=== PATIENT | female | born 1990 | race American Indian/Alaskan Native ===

== ENCOUNTER 2016-10-18 18:05 | Emergency (ER) | payer MEDICAID ==
[2016-10-18 19:30] LABS: Basophils % (Auto) 0.6 % (0.0-1.8); Eosinophils % (Auto) 2.1 % (0.0-4.3); Hematocrit 36.3 % (30.3-42.9); Mean Corpuscular HGB Conc 33 % (30-34); Mean Corpuscular Hemoglobin 31 pg (28-32); Mean Corpuscular Volume 92 fl (79-97); Platelet Count 179 K/mm3 (140-440); Red Blood Count 3.93 M/mm3 (3.65-5.03); Red Cell Distribution Width 14.4 % (13.2-15.2); White Blood Count 6.8 K/mm3 (4.5-11.0)
[2016-10-18 19:42] LABS: Anion Gap 17 mmol/L; BUN/Creatinine Ratio 15.71; Blood Urea Nitrogen 11 mg/dL (7-17); Calcium 9.2 mg/dL (8.4-10.2); Carbon Dioxide 24 mmol/L (22-30); Chloride 101.8 mmol/L (98-107); Glucose 78 mg/dL (65-100); Potassium 4.4 mmol/L (3.6-5.0); Sodium 138 mmol/L (137-145)
[2016-10-18] MEDS ORDERED: MORPHINE IV ONE (22:49)
[2016-10-18] MEDS ORDERED: ZOFRAN IV ONE (22:49)
[2016-10-18] MEDS ORDERED: LIDOCAINE VISCOUS 2% PO ONE (22:53)
[2016-10-18] MEDS ORDERED: ALUM-MAG HYDROX-SIMETH 200-200-20MG/5ML PO ONE (22:53)
[2016-10-18] MEDS ORDERED: PEPCID IV ONE (22:53)
--- NOTE | 2016-10-18 22:59 | Emergency Department Report ---
HPI - General Chief Complaint: Chest Pain Time Seen by Provider: 10/18/16 22:42 - HPI HPI: Room 22 The patient is a 26-year-old female presenting with a chief complaint of chest pain. Patient states for the past 3-4 days she has a constant substernal chest pain described as stabbing and squeezing in nature. The patient states the pain increases with deep respiration and swallowing. Patient states the pain increased today. The patient states she originally thought pain was secondary to gas. Patient states she has noticed a slight increased amount of eructation but has not noticed any funny taste in the back of her mouth. Patient does admit to shortness of breath but denies nausea/vomiting or fever. Patient admits to an occasional nonproductive cough. Patient admits to occasional rhinorrhea. Patient denies any sick contacts. 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 hx of pna - Surgical History Past Surgical History?: Yes Additional Surgical History: PEG tube placement and removal, port - Family History Family history: no significant - Social History Smoking Status: Never Smoker Substance Use Type: None - Medications Home Medications: Home Medications Medication Instructions Recorded Confirmed Last Taken Type Ciprofloxacin HCl [Ciprofloxacin 500 mg PO Q12H #14 tab 06/09/16 Unknown Rx TAB] Magnesium Oxide [Mag-Ox] 400 mg PO QDAY #7 tablet 06/09/16 Unknown Rx Potassium Chloride [K-Dur] 10 meq PO QDAY #7 tablet 06/09/16 Unknown Rx guaiFENesin DM [Robitussin Dm] 10 ml PO Q4H PRN 7 Days 06/09/16 Unknown Rx Famotidine [Pepcid] 20 mg PO BID #30 tablet 10/19/16 Unknown Rx HYDROcodone/APAP 5-325 [[place] 1 - 2 each PO Q6HR PRN #14 tablet 10/19/16 Unknown Rx 5/325] ED Review of Systems ROS: Stated complaint: AHMET/CHEST PAIN Other details as noted in HPI Comment: All other systems reviewed and negative Constitutional: denies: chills, fever Eyes: denies: eye pain, eye discharge, vision change ENT: denies: ear pain, throat pain Respiratory: cough, shortness of breath Cardiovascular: chest pain Endocrine: no symptoms reported Gastrointestinal: other (slightly increased eructation). denies: abdominal pain , nausea, diarrhea Genitourinary: denies: urgency, dysuria, discharge Musculoskeletal: denies: back pain, joint swelling, arthralgia Skin: denies: rash, lesions Neurological: denies: headache, weakness, paresthesias Psychiatric: denies: anxiety, depression Hematological/Lymphatic: denies: easy bleeding, easy bruising Physical Exam - Physical Exam Vital Signs: Vital Signs 10/18/16 18:27 Temperature 98.4 F Pulse Rate 72 Respiratory 18 Rate Blood Pressure 112/72 O2 Sat by Pulse 100 Oximetry Physical Exam: GENERAL: The patient is well-developed well-nourished female lying on stretcher appearing to be in moderate discomfort. [] HEENT: Normocephalic. Atraumatic. Extraocular motions are intact. Patient has moist mucous membranes. NECK: Supple. Trachea midline CHEST/LUNGS: Clear to auscultation. There is no respiratory distress noted. HEART/CARDIOVASCULAR: Regular. There is no tachycardia. There is no gallop rub or murmur. ABDOMEN: Abdomen is soft, nontender. Patient has normal bowel sounds. There is no abdominal distention. SKIN: There is no rash. There is no edema. There is no diaphoresis. NEURO: The patient is awake, alert, and oriented. The patient is cooperative. The patient has normal speech MUSCULOSKELETAL: There is no evidence of acute injury. ED Course Vital Signs 10/18/16 18:27 Temperature 98.4 F Pulse Rate 72 Respiratory 18 Rate Blood Pressure 112/72 O2 Sat by Pulse 100 Oximetry - Reevaluation(s) Reevaluation #1: 10/19/16 00:26 Patient states she has had some improvement ED Medical Decision Making - Lab Data Result diagrams: 10/18/16 19:12 10/18/16 19:12 Laboratory Tests 10/18/16 10/18/16 10/18/16 19:12 19:12 23:07 WBC 6.8 RBC 3.93 Hgb 12.0 Hct 36.3 MCV 92 MCH 31 MCHC 33 RDW 14.4 Plt Count 179 Lymph % (Auto) 23.9 [place] % (Auto) 9.3 H Eos % (Auto) 2.1 Baso % (Auto) 0.6 Lymph # 1.6 [place] # 0.6 Eos # 0.1 Baso # 0.0 Seg Neutrophils % 64.1 Seg Neutrophils # 4.4 Sodium 138 Potassium 4.4 Chloride 101.8 Carbon Dioxide 24 Anion Gap 17 BUN 11 Creatinine 0.7 Estimated GFR > 60 BUN/Creatinine Ratio 15.71 Glucose 78 Calcium 9.2 Troponin T < 0.010 < 0.010 HCG, Qual 10/18/16 23:07 WBC RBC Hgb Hct MCV MCH MCHC RDW Plt Count Lymph % (Auto) [place] % (Auto) Eos % (Auto) Baso % (Auto) Lymph # [place] # Eos # Baso # Seg Neutrophils % Seg Neutrophils # Sodium Potassium Chloride Carbon Dioxide Anion Gap BUN Creatinine Estimated GFR BUN/Creatinine Ratio Glucose Calcium Troponin T HCG, Qual Negative - EKG Data -: EKG Interpreted by Mn EKG shows normal: sinus rhythm Rate: normal - EKG Data When compared to previous EKG there are: previous EKG unavailable Interpretation: other (no ischemic changes seen) - Radiology Data Radiology results: report reviewed (CT chest), image reviewed (CT chest) CT chest (read by radiologist)-the lungs are clear. No infiltrate or effusion. No pneumothorax. The pulmonary arterial structures a pacifier without thromboemboli. - Differential Diagnosis PE, GERD, esophageal spasm, pericarditis, ACS Critical care attestation.: If time is entered above; I have spent that time in minutes in the direct care of this critically ill patient, excluding procedure time. ED Disposition Clinical Impression: Atypical chest pain Disposition: DISCHARGED TO HOME OR SELFCARE Is pt being admited?: No Does the pt Need Aspirin: No Condition: Stable Instructions: Chest Pain (ED) Additional Instructions: Return to the emergency department immediately should you develop worsening symptoms, fever, inability to tolerate food or liquid or any other concerns. Prescriptions: Famotidine [Pepcid] 20 mg PO BID #30 tablet HYDROcodone/APAP 5-325 [[place] 5/325] 1 - 2 each PO Q6HR PRN #14 tablet PRN Reason: Pain Referrals: PRIMARY CARE, [Primary Care Provider] - 3-5 Days TATI FARRELL MD [Staff Physician] - 2-3 Days (Dr. Farrell is a purchaser. Please follow up with him for further evaluation) Time of Disposition: 00:30
[2016-10-18 23:09] VITALS: BP 120/72
[2016-10-18] MEDS ORDERED: NACL ONE (23:46)
--- NOTE | 2016-10-19 00:20 | Cat Scan Report ---
FINAL REPORT PROCEDURE: CT ANGIO CHEST TECHNIQUE: Computerized tomographic angiography of the chest was performed after the IV injection of iodinated nonionic contrast including image processing. The image data was postprocessed using 2-dimensional multiplanar reformatted (MPR) and 3-dimensional (MIP and/or volume rendered) techniques. HISTORY: pleuritic chest pain COMPARISON: 06/04/2016 FINDINGS: Heart and pericardium: Normal. Thoracic aorta: Normal. Pulmonary vasculature: Normal. Lymph nodes: No enlarged thoracic lymph nodes. Lungs: Normal. Pleural space: No effusion, thickening, or pneumothorax. Musculoskeletal structures: No significant abnormality. Upper abdominal structures: No significant abnormality. IMPRESSION: The lungs are clear. No infiltrate or effusion. No pneumothorax. The pulmonary arterial structures opacified without thromboemboli.
== END 2016-10-19 01:05 | disposition home or self-care (01) ==
LOC: ED 18:05
DX: R07.89 Other chest pain (principal); I26.99 Other pulmonary embolism without acute cor pulmonale
CPT/HCPCS: 36415; 71275; 80048; 84484; 84703; 85025; 93005; 93010; 96374; 96375; 99285; J2270; J2405; Q9967

== ENCOUNTER 2017-09-02 02:40 | Emergency (ER) | payer MEDICAID, OTHER ==
[2017-09-02 03:35] LABS: Basophils % (Auto) 0.8 % (0.0-1.8); Eosinophils % (Auto) 0.7 % (0.0-4.3); Hematocrit 37.3 % (30.3-42.9); Hemoglobin 12.8 gm/dl (10.1-14.3); Lymphocytes # (Auto) 1.1 K/mm3 (1.2-5.4); Lymphocytes % (Auto) 20.9 % (13.4-35.0); Mean Corpuscular HGB Conc 34 % (30-34); Mean Corpuscular Hemoglobin 32 pg (28-32); Mean Corpuscular Volume 94 fl (79-97); Monocytes # (Auto) 0.6 K/mm3 (0.0-0.8); Monocytes % (Auto) 11.8 % (0.0-7.3); Platelet Count 177 K/mm3 (140-440); Red Blood Count 3.98 M/mm3 (3.65-5.03)
--- NOTE | 2017-09-02 03:48 | XRay Report ---
FINAL REPORT PROCEDURE: XR CHEST ROUTINE 2V TECHNIQUE: PA and lateral chest radiographs were obtained. CPT 32533 HISTORY: Shortness of breath COMPARISON: No prior studies are available for comparison. FINDINGS: Heart: Normal. Mediastinum/Vessels: Normal. Lungs/Pleural space: Normal. Bony thorax: No acute osseous abnormality. Other: IMPRESSION: Normal examination.
[2017-09-02 03:53] LABS: BUN/Creatinine Ratio 20; Blood Urea Nitrogen 12 mg/dL (7-17); Calcium 9.5 mg/dL (8.4-10.2); Hemolysis Index 2
[2017-09-02] MEDS ORDERED: DUONEB *Not for PRN Use IH ONE (03:55)
[2017-09-02] MEDS ORDERED: TYLENOL PO ONE (04:39)
[2017-09-02] MEDS ORDERED: NACL 0.9% 1000 ML 1,000 ML IV ONE (04:40)
--- NOTE | 2017-09-02 05:33 | Ultrasound Report ---
FINAL REPORT PROCEDURE: US OB < = 14 WEEKS FETUS TECHNIQUE: Real-time transabdominal sonography of the uterus, placenta, amniotic fluid, adnexa, and fetus was performed with image documentation. Measurements were obtained to determine age/size. M-mode Doppler was used to document heartbeat. CPT 70020 HISTORY: COMPARISON: No prior studies are available for comparison. FINDINGS: There is a gestational sac within the uterus. Gestational sac size of 8 millimeters corresponds to an approximate gestational age of 5 weeks. No yolk sac or pole is seen on this study. Both ovaries are identified and have a normal appearance. No fluid in the lower pelvis. The findings are most consistent with early intrauterine . Followup study may include repeat ultrasound approximately 14 days. IMPRESSION: There is a gestational sac within the uterus. No pole or yolk sac is seen at this stage. The gestational age is approximately 5 weeks. Followup study with repeat ultrasound in approximately 2 weeks would be appropriate.
[2017-09-02 06:03] VITALS: BP 119/65
[2017-09-02] MEDS ORDERED: MORPHINE IV ONE (06:20)
--- NOTE | 2017-09-02 07:27 | Emergency Department Report ---
HPI - General Chief Complaint: Dyspnea/Respdistress Time Seen by Provider: 09/02/17 03:42 - HPI HPI: This is a 27-year-old female who presents to the emergency department via EMS from home with complaint of some shortness of breath and midsternal chest pain that started a few hours prior to presentation. She says that at first it felt like it started in the upper abdomen but then moved to the chest. The pain mostly worsens when coughing or with some respirations. She has a past medical history allegedly of some type of nasopharyngeal cancer. She also says that she has some remote history of a pulmonary embolism. She is not currently on any anticoagulation. She has been here a few times in the past for chest pain workups. She denies any tobacco or illicit drug use or abuse. She did not take anything for her symptoms prior to presentation. She has a primary care physician, Dr. Alyssa dangelo, but has not seen them regarding her symptoms. No recent travel or sick contacts at home. 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 hx of pna - Surgical History Additional Surgical History: PEG tube placement and removal, port - Social History Smoking Status: Never Smoker Substance Use Type: None - Medications Home Medications: Home Medications Medication Instructions Recorded Confirmed Last Taken Type Ciprofloxacin HCl [Ciprofloxacin 500 mg PO Q12H #14 tab 06/09/16 Unknown Rx TAB] Magnesium Oxide [Mag-Ox] 400 mg PO QDAY #7 tablet 06/09/16 Unknown Rx Potassium Chloride [K-Dur] 10 meq PO QDAY #7 tablet 06/09/16 Unknown Rx guaiFENesin DM [Robitussin Dm] 10 ml PO Q4H PRN 7 Days oral.liqd 06/09/16 Unknown Rx Famotidine [Pepcid] 20 mg PO BID #30 tablet 10/19/16 Unknown Rx HYDROcodone/APAP 5-325 [[place] 1 - 2 each PO Q6HR PRN #14 tablet 10/19/16 Unknown Rx 5/325] Vit No.130/Iron/Folic 1 each PO QDAY #30 tablet 09/02/17 Unknown Rx [ Tablet] ED Review of Systems ROS: Stated complaint: AHMET Other details as noted in HPI Comment: All other systems reviewed and negative Constitutional: denies: chills, fever Eyes: denies: eye pain, eye discharge, vision change ENT: denies: ear pain, throat pain Respiratory: cough, shortness of breath Cardiovascular: chest pain. denies: edema Gastrointestinal: abdominal pain. denies: vomiting Genitourinary: denies: urgency, dysuria, discharge Musculoskeletal: denies: back pain, joint swelling, arthralgia Skin: denies: rash, lesions Neurological: denies: headache, weakness, paresthesias Physical Exam - Physical Exam Vital Signs: Vital Signs 09/02/17 09/02/17 09/02/17 02:43 03:29 03:30 Temperature 98.3 F Pulse Rate 96 H 75 74 Respiratory 24 16 15 Rate Blood Pressure 99/57 Blood Pressure 99/57 [Right] O2 Sat by Pulse 100 100 Oximetry 09/02/17 09/02/17 09/02/17 03:45 04:00 04:15 Temperature Pulse Rate 70 88 94 H Respiratory 19 21 22 Rate Blood Pressure 115/70 111/70 111/70 Blood Pressure [Right] O2 Sat by Pulse 100 99 100 Oximetry 09/02/17 09/02/17 09/02/17 04:31 04:45 05:00 Temperature Pulse Rate 98 H 76 102 H Respiratory 16 14 20 Rate Blood Pressure 111/70 111/70 119/65 Blood Pressure [Right] O2 Sat by Pulse 100 100 100 Oximetry 09/02/17 09/02/17 09/02/17 05:15 05:21 05:31 Temperature Pulse Rate 83 Respiratory 18 18 Rate Blood Pressure 119/65 119/65 Blood Pressure [Right] O2 Sat by Pulse 100 100 Oximetry 09/02/17 09/02/17 09/02/17 05:45 06:05 06:37 Temperature Pulse Rate 93 H Respiratory 25 H 20 20 Rate Blood Pressure 119/65 Blood Pressure [Right] O2 Sat by Pulse 100 Oximetry Physical Exam: GENERAL: The patient is well-developed well-nourished. HENT: Normocephalic. Atraumatic. Patient has moist mucous membranes. EYES: Extraocular motions are intact. Pupils equal reactive to light bilaterally. NECK: Supple. Trachea is midline. CHEST/LUNGS: Clear to auscultation. Mild tachypnea but no accessory muscle use. There is no respiratory distress noted. HEART/CARDIOVASCULAR: Regular. There is mild tachycardia. There is no murmur. ABDOMEN: Abdomen is soft, nontender. Patient has normal bowel sounds. There is no abdominal distention. SKIN: Skin is warm and dry. NEURO: The patient is awake, alert, and oriented. The patient is cooperative. The patient has no focal neurologic deficits. The patient has normal speech. MUSCULOSKELETAL: There is no tenderness or deformity. There is no limitation range of motion. There is no evidence of acute injury. ED Course Vital Signs 09/02/17 09/02/17 09/02/17 02:43 03:29 03:30 Temperature 98.3 F Pulse Rate 96 H 75 74 Respiratory 24 16 15 Rate Blood Pressure 99/57 Blood Pressure 99/57 [Right] O2 Sat by Pulse 100 100 Oximetry 09/02/17 09/02/17 09/02/17 03:45 04:00 04:15 Temperature Pulse Rate 70 88 94 H Respiratory 19 21 22 Rate Blood Pressure 115/70 111/70 111/70 Blood Pressure [Right] O2 Sat by Pulse 100 99 100 Oximetry 09/02/17 09/02/17 09/02/17 04:31 04:45 05:00 Temperature Pulse Rate 98 H 76 102 H Respiratory 16 14 20 Rate Blood Pressure 111/70 111/70 119/65 Blood Pressure [Right] O2 Sat by Pulse 100 100 100 Oximetry 09/02/17 09/02/17 09/02/17 05:15 05:21 05:31 Temperature Pulse Rate 83 Respiratory 18 18 Rate Blood Pressure 119/65 119/65 Blood Pressure [Right] O2 Sat by Pulse 100 100 Oximetry 09/02/17 09/02/17 09/02/17 05:45 06:05 06:37 Temperature Pulse Rate 93 H Respiratory 25 H 20 20 Rate Blood Pressure 119/65 Blood Pressure [Right] O2 Sat by Pulse 100 Oximetry ED Medical Decision Making - Lab Data Result diagrams: 09/02/17 03:17 09/02/17 03:17 - EKG Data -: EKG Interpreted by Fl EKG shows normal: sinus rhythm, axis, intervals, QRS complexes, ST-T waves Rate: normal - EKG Data When compared to previous EKG there are: previous EKG unavailable Interpretation: normal EKG, unchanged when compared t (10/18/16) - Radiology Data Radiology results: report reviewed, image reviewed interpreted by me: Chest x-ray does not show any acute process. There are no pleural effusions, obvious pneumonia and there is no pneumothorax. EXAM: US ABDOMEN LIMITED HISTORY: upper abd pain TECHNIQUE: Routine sonographic imaging was obtained of the right upper quadrant. FINDINGS: The gallbladder is normal in size and wall thickness. There are 2 echogenic foci in the lumen which do not move. As to whether these are small polyps versus non shadowing air in stones is uncertain. The common bile duct is normal caliber 3.2 mm. The liver is normal size and echotexture. The pancreas is normal in size and echotexture. The right kidney is normal size contour and echotexture and measures 10.6 cm from pole level. Free fluid is not seen. IMPRESSION: Two small adherent stones versus polyps in the gallbladder. No acute process identified. Transcribed By: JAME Dictated By: NGOC VILLEDA MD Electronically Authenticated By: NGOC VILLEDA MD Signed Date/Time: 09/02/17 0321 PROCEDURE: US OB lt; = 14 WEEKS FETUS TECHNIQUE: Real-time transabdominal sonography of the uterus, placenta, amniotic fluid, adnexa, and fetus was performed with image documentation. Measurements were obtained to determine age/size. M-mode Doppler was used to document heartbeat. CPT 39376 HISTORY: COMPARISON: No prior studies are available for comparison. FINDINGS: There is a gestational sac within the uterus. Gestational sac size of 8 millimeters corresponds to an approximate gestational age of 5 weeks. No yolk sac or pole is seen on this study. Both ovaries are identified and have a normal appearance. No fluid in the lower pelvis. The findings are most consistent with early intrauterine . Followup study may include repeat ultrasound approximately 14 days. IMPRESSION: There is a gestational sac within the uterus. No pole or yolk sac is seen at this stage. The gestational age is approximately 5 weeks. Followup study with repeat ultrasound in approximately 2 weeks would be appropriate. Transcribed By: KYLAH Dictated By: CHLOE OLVERA MD Electronically Authenticated By: CHLOE OLVERA MD Signed Date/Time: 09/02/17 0129 - Medical Decision Making Patient presented with some chest pain, upper abdominal pain and shortness of breath. EKG is normal without ST elevation LA, ischemia or dysrhythmia. She had a chest x-ray that showed no signs of any pneumonia, pneumothorax, pleural effusions or any other acute process. Normal CBC, BMP and first troponin. Patient had a positive urine test. She says that her last menstrual cycle was in June and that she just started her cycle today with some mild vaginal bleeding. I sent a beta hCG quantitative came back at 2500. For this reason a transvaginal/OB ultrasound was done that came back showing a gestational sac without yolk sac or pole. This could be early . With the vaginal bleeding this could be threatened miscarriage. This was all discussed with the patient. At first I was hesitant to give the patient any pain medication more than Tylenol as she was found to be . The patient understands the risks of giving narcotic pain medication while but says that she does not care and accepts the risk and therefore the patient was given a dose of morphine for her chest pain. She was reevaluated and appears to be resting comfortably. Just prior to this, the patient was complaining of some upper abdominal pain so LFTs and lipase were added and a second troponin as well and the patient was sent for a upper abdominal ultrasound. It came back showing a possible gallstone versus gallbladder polyp. I am waiting on the results of the LFTs, lipase and troponin. If there are no significant abnormalities, and since the patient appears to be more comfortable , she will be discharged home. I plan to give a prescription for vitamins, a referral for [facility] services and a cardiology referral. The patient is low on the Heart score criteria. She has a DANIEL score of one of her pain is considered angina and 0 if not. She had a negative d-dimer and therefore is low suspicion for a pulmonary embolus. Critical Care Time: No Critical care attestation.: If time is entered above; I have spent that time in minutes in the direct care of this critically ill patient, excluding procedure time. ED Disposition Clinical Impression: Upper abdominal pain, Gallbladder polyp, Threatened miscarriage Chest pain Qualifiers: Chest pain type: unspecified Qualified Code(s): R07.9 - Chest pain, unspecified Qualifiers: Weeks of gestation: less than 8 weeks Qualified Code(s): Z3A.01 - Less than 8 weeks gestation of Disposition: - TO HOME OR SELFCARE Is pt being admited?: No Condition: Stable Instructions: Chest Pain (ED), (ED), Threatened Miscarriage (ED) Additional Instructions: Please follow up with an [facility] in the next few days. She will need a repeat hormone level to assess for early versus threatened miscarriage. You can take Tylenol every 4 hours, using weight-based dosing, as needed for discomfort. I have started you on vitamins. I have given him a referral for a local aircraft engine installer, Dr. Morrissey, in case she would like to follow up regarding her chest pain. I have given you multiple [facility] services/groups in the area. Return to the emergency Department with any worsening of her symptoms or any acute distress. Prescriptions: Vit No.130/Iron/Folic [ Tablet] 1 each PO QDAY #30 tablet Referrals: FARIHA MORRISSEY MD [Staff Physician] - 3-5 Days [facility] [Provider Group] - 3-5 Days [facility] [Provider Group] - 3-5 Days Time of Disposition: 07:38
[2017-09-02 08:28] LABS: Alanine Aminotransferase 8 units/L (7-56); Albumin 3.9 g/dL (3.9-5); Lipase 33 units/L (13-60)
[2017-09-02 08:37] LABS: Bilirubin,Direct < 0.2 mg/dL (0-0.2)
== END 2017-09-02 07:35 | disposition home or self-care (01) ==
LOC: ED 02:40
DX: O20.0 Threatened abortion (principal); Z3A.08 8 weeks gestation of pregnancy; R07.2 Precordial pain; R10.10 Upper abdominal pain, unspecified; K82.4 Cholesterolosis of gallbladder
CPT/HCPCS: 36415; 71046; 76705; 76801; 80048; 80074; 83690; 84484; 84702; 84703; 85025; 85379; 93005; 93010; 94640; 96361; 96374; 99285; J2270; J7030

== ENCOUNTER 2017-09-12 22:21 | Emergency (ER) | payer OTHER ==
[2017-09-12 22:40] VITALS: BP 97/65
[2017-09-12] MEDS ORDERED: ASPIRIN PO ONE (22:40)
[2017-09-12 22:57] LABS: Basophils % (Auto) 0.6 % (0.0-1.8); Eosinophils # (Auto) 0.1 K/mm3 (0.0-0.4); Eosinophils % (Auto) 2.1 % (0.0-4.3); Hematocrit 36.3 % (30.3-42.9); Hemoglobin 12.2 gm/dl (10.1-14.3); Lymphocytes # (Auto) 1.7 K/mm3 (1.2-5.4); Mean Corpuscular HGB Conc 34 % (30-34); Mean Corpuscular Hemoglobin 32 pg (28-32); Mean Corpuscular Volume 94 fl (79-97); Monocytes # (Auto) 0.4 K/mm3 (0.0-0.8); Monocytes % (Auto) 8.6 % (0.0-7.3); Platelet Count 173 K/mm3 (140-440); Red Blood Count 3.85 M/mm3 (3.65-5.03); Red Cell Distribution Width 12.8 % (13.2-15.2)
[2017-09-12 23:13] LABS: BUN/Creatinine Ratio 23; Blood Urea Nitrogen 14 mg/dL (7-17); Calcium 9.2 mg/dL (8.4-10.2); Hemolysis Index 1
--- NOTE | 2017-09-12 23:14 | XRay Report ---
FINAL REPORT PROCEDURE: XR CHEST ROUTINE 2V TECHNIQUE: PA and lateral chest radiographs were obtained. CPT 94959 HISTORY: SOB/RECENT MISCARRIAGE COMPARISON: 09/02/2017 FINDINGS: Heart: Normal. Mediastinum/Vessels: Normal. Lungs/Pleural space: Normal 4 millimeter calcific nodule is noted in the posterior lung as visualized on lateral view consistent with an old healed granuloma. There are no confluent infiltrates or mass lesions. Pleural spaces are clear.. Bony thorax: No acute osseous abnormality. Other: IMPRESSION: No acute pulmonary process.
== END 2017-09-13 00:02 | disposition left against medical advice (07) ==
LOC: ED 22:21
DX: R07.9 Chest pain, unspecified (principal); R10.2 Pelvic and perineal pain; Z53.1 Procedure and treatment not carried out because of patient's decision for reasons of belief and group pressure
CPT/HCPCS: 36415; 71046; 80048; 84484; 84702; 85025; 85379; 93005; 93010

== ENCOUNTER 2017-09-16 20:23 | Emergency (ER) | payer OTHER ==
--- NOTE | 2017-09-16 20:46 | Emergency Department Report ---
HPI - General Time Seen by Provider: 09/16/17 20:34 - HPI HPI: The patient is 27-year-old female with a history of chronic chest pain, who presents for evaluation recurrence of chest pain. The patient reports onset of new episode of chest pain at 7 PM, 2 hours prior to my evaluation, constant since onset, moderate in severity, burning and cramping in quality, exacerbated with coughing. She has been expressing a dry nonproductive cough for the past day. The patient denies fever, trauma to the chest, neck pain, parasthesias, dyspnea, cough, hemoptysis, palpitations, dizziness, syncope, unilateral leg swelling, calf muscle pain, cocaine or other stimulant use, recent immobilization, or history of cancer. 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 hx of pna - Surgical History Additional Surgical History: PEG tube placement and removal, port - Social History Smoking Status: Never Smoker Substance Use Type: Alcohol - Medications Home Medications: Home Medications Medication Instructions Recorded Confirmed Last Taken Type Ciprofloxacin HCl [Ciprofloxacin 500 mg PO Q12H #14 tab 06/09/16 Unknown Rx TAB] Magnesium Oxide [Mag-Ox] 400 mg PO QDAY #7 tablet 06/09/16 Unknown Rx Potassium Chloride [K-Dur] 10 meq PO QDAY #7 tablet 06/09/16 Unknown Rx guaiFENesin DM [Robitussin Dm] 10 ml PO Q4H PRN 7 Days oral.liqd 06/09/16 Unknown Rx Famotidine [Pepcid] 20 mg PO BID #30 tablet 10/19/16 Unknown Rx HYDROcodone/APAP 5-325 [[place] 1 - 2 each PO Q6HR PRN #14 tablet 10/19/16 Unknown Rx 5/325] Vit No.130/Iron/Folic 1 each PO QDAY #30 tablet 09/02/17 Unknown Rx [ Tablet] Omeprazole Magnesium [PriLOSEC Otc] 20 mg PO QDAY #14 tablet. 09/16/17 Unknown Rx traMADol [Ultram 50 MG tab] 50 mg PO Q6HR PRN #12 tablet 09/16/17 Unknown Rx ED Review of Systems ROS: Stated complaint: AHMET,CP Other details as noted in HPI Constitutional: denies: fever ENT: denies: throat or neck pain Respiratory: reports cough denies: shortness of breath Cardiovascular: reports: chest pain Endocrine: denies unexplained weight loss or gain Gastrointestinal: denies: abdominal pain, nausea Genitourinary: denies: dysuria Musculoskeletal: denies: leg swelling Skin: denies: rash Neurological: denies: headache Hematological/Lymphatic: denies: easy bleeding or easy bruising Psych: denies sadness or hopelessness Physical Exam - Physical Exam Physical Exam: General: well-nourished, well-developed, no acute distress Head: Normocephalic, atraumatic Eyes: normal sclera ENT: Mucous membranes are pink and moist Neck: trachea midline, neck supple, No neck stiffness, no cervical adenopathy Respiratory: Breath sounds equal bilaterally, no wheezing, rales, or rhonchi Cardio: S1 and S2 present, no murmurs, rubs, gallops, capillary refill is brisk Abdomen: Normoactive bowel sounds, soft abdomen, no rigidity, no guarding or rebound tenderness Chest WALL/Back: No tenderness to palpation of the chest wall, no CVA tenderness with percussion Musc: No pitting edema Skin: No rash Neuro: no facial drooping, normal speech Psych: Normal affect ED Medical Decision Making - Lab Data Result diagrams: 09/16/17 21:03 09/16/17 21:03 - Medical Decision Making The patient was seen and examined by myself. The patient is placed on a cardiac catheterization technician and continuous pulse ox. On initial evaluation, the patient was found to be in no distress. EKG was negative for findings suggestive of acute cardiac infarct. Labs and imaging are obtained. The patient was given pain medicine. Chest x-ray is negative for pneumothorax, focal consolidation, pulmonary vascular congestion, pleural effusion, or other obvious acute cardiopulmonary disease process. Lab results exhibited downtrending hCG level, consistent with likely miscarriage as hCG has decreased from 2500 2 weeks ago to 2.5 today, and otherwise labs were unremarkable including levels of troponin , WBC, hemoglobin, hematocrit, electrolytes, renal function. The patient was reevaluated and reported that their symptoms were markedly improved. As the patient has a DANIEL risk score less than 2, and a well's score less than 2, the patient is at low risk of ACS or pulmonary emboli etiology of their symptoms. The patient is stable for discharge with outpatient follow-up. The patient is given follow-up and return instructions. The patient expressed understanding and agreed with the plan. The patient is discharged in stable condition. Critical care attestation.: If time is entered above; I have spent that time in minutes in the direct care of this critically ill patient, excluding procedure time. ED Disposition Clinical Impression: Acute chest pain Disposition: DC-01 TO HOME OR SELFCARE Is pt being admited?: No Does the pt Need Aspirin: No Condition: Stable Instructions: Chest Pain (ED) Referrals: FARIHA JARRETT MD [Primary Care Provider] - 3-5 Days Time of Disposition: 20:46
[2017-09-16] MEDS ORDERED: SUBLIMAZE IV ONE (20:50)
[2017-09-16] MEDS ORDERED: ZOFRAN IV ONE (20:50)
[2017-09-16 21:12] LABS: Basophils % (Auto) 0.6 % (0.0-1.8); Eosinophils # (Auto) 0.1 K/mm3 (0.0-0.4); Eosinophils % (Auto) 1.6 % (0.0-4.3); Hematocrit 38.1 % (30.3-42.9); Hemoglobin 13.2 gm/dl (10.1-14.3); Lymphocytes # (Auto) 2.1 K/mm3 (1.2-5.4); Lymphocytes % (Auto) 35.5 % (13.4-35.0); Mean Corpuscular HGB Conc 35 % (30-34); Mean Corpuscular Hemoglobin 32 pg (28-32); Mean Corpuscular Volume 94 fl (79-97); Monocytes # (Auto) 0.6 K/mm3 (0.0-0.8); Monocytes % (Auto) 9.5 % (0.0-7.3); Platelet Count 186 K/mm3 (140-440); Red Blood Count 4.06 M/mm3 (3.65-5.03); Red Cell Distribution Width 12.7 % (13.2-15.2)
[2017-09-16 21:38] LABS: Alanine Aminotransferase 7 units/L (7-56); Albumin 4.3 g/dL (3.9-5); BUN/Creatinine Ratio 18; Blood Urea Nitrogen 11 mg/dL (7-17); Calcium 9.6 mg/dL (8.4-10.2); Hemolysis Index 13
[2017-09-16 22:41] VITALS: BP 94/54
[2017-09-16] MEDS ORDERED: TYLENOL PO ONE (23:12)
--- NOTE | 2017-09-16 23:16 | XRay Report ---
FINAL REPORT EXAM: XR CHEST 1V AP HISTORY: cp COMPARISON: September 12, 2017. FINDINGS: Frontal view(s) of the chest obtained. Cardiac silhouette within normal limits. No gross consolidation or effusion. No pneumothorax. IMPRESSION: No grossly acute findings.
== END 2017-09-16 23:51 | disposition home or self-care (01) ==
LOC: ED 20:23
DX: R07.9 Chest pain, unspecified (principal)
CPT/HCPCS: 36415; 71045; 80053; 83880; 84702; 85025; 93005; 93010; 96374; 96375; 99284; J2405; J3010

== ENCOUNTER 2017-10-16 02:46 | Emergency (ER) | payer OTHER ==
[2017-10-16] MEDS ORDERED: ASPIRIN PO ONE (03:18)
[2017-10-16 03:34] LABS: Basophils # (Auto) 0.1 K/mm3 (0.0-0.1); Basophils % (Auto) 0.9 % (0.0-1.8); Eosinophils # (Auto) 0.2 K/mm3 (0.0-0.4); Eosinophils % (Auto) 3.7 % (0.0-4.3); Hemoglobin 11.6 gm/dl (10.1-14.3); Lymphocytes # (Auto) 2.4 K/mm3 (1.2-5.4); Lymphocytes % (Auto) 43.5 % (13.4-35.0); Mean Corpuscular HGB Conc 34 % (30-34); Mean Corpuscular Hemoglobin 32 pg (28-32); Mean Corpuscular Volume 92 fl (79-97); Monocytes # (Auto) 0.7 K/mm3 (0.0-0.8); Monocytes % (Auto) 12.3 % (0.0-7.3); Platelet Count 203 K/mm3 (140-440); Red Blood Count 3.68 M/mm3 (3.65-5.03)
[2017-10-16 03:52] LABS: BUN/Creatinine Ratio 30; Blood Urea Nitrogen 15 mg/dL (7-17); Calcium 8.8 mg/dL (8.4-10.2); Hemolysis Index 4
--- NOTE | 2017-10-16 04:40 | XRay Report ---
FINAL REPORT EXAM: XR CHEST ROUTINE 2V HISTORY: chestpain and SOB TECHNIQUE: PA and lateral views of the chest were obtained and compared to the study 09/16/2017. FINDINGS: Heart size and mediastinum appear normal. Lungs are clear. Pleural fluid is not seen. The bones and soft tissues are unremarkable. IMPRESSION: Normal chest.
[2017-10-16] MEDS ORDERED: ZOFRAN IV ONE (10:52)
--- NOTE | 2017-10-16 10:59 | Emergency Department Report ---
HPI - General Chief Complaint: Dyspnea/Respdistress Time Seen by Provider: 10/16/17 10:45 - HPI HPI: Room 2 The patient is a 27-year-old female presenting with a chief complaint of chest pain. The patient states for the past 2-3 days she's had anterior chest pain described as pressure with associated shortness during exhalation. Patient states last night she became short of breath and noticed she was exhibiting "shallow breathing." The patient states she also noticed pain and swelling of both legs last night. Patient admits to slight diaphoresis with her chest pain but denies nausea/vomiting. Patient is to call for the past 2 days but states it is nonproductive. Patient denies any history of fever. Patient was diagnosed with PE approximately 6-8 months ago (not currently on anticoagulation /completed a 6 month course) and states her current chest pain feels somewhat different than her previous PE Location: Chest, legs Duration: [See above] Quality: [See above] Severity: [See above] Modifying factors: [see above] Context: [see above] Mode of transportation: [not driving] ED Past Medical Hx - Past Medical History Hx Pulmonary Embolism: Yes Additional medical history: Nasopharyngeal CA status post XRT and chemotherapy 2011also hx of pna, DVT - Surgical History Additional Surgical History: PEG tube placement and removal, port placement and removal - Family History Family history: no significant - Social History Smoking Status: Never Smoker Substance Use Type: None (denies illicit drug use) - Medications Home Medications: Home Medications Medication Instructions Recorded Confirmed Last Taken Type Ciprofloxacin HCl [Ciprofloxacin 500 mg PO Q12H #14 tab 06/09/16 Unknown Rx TAB] Magnesium Oxide [Mag-Ox] 400 mg PO QDAY #7 tablet 06/09/16 Unknown Rx Potassium Chloride [K-Dur] 10 meq PO QDAY #7 tablet 06/09/16 Unknown Rx guaiFENesin DM [Robitussin Dm] 10 ml PO Q4H PRN 7 Days oral.liqd 06/09/16 Unknown Rx Famotidine [Pepcid] 20 mg PO BID #30 tablet 10/19/16 Unknown Rx HYDROcodone/APAP 5-325 [[place] 1 - 2 each PO Q6HR PRN #14 tablet 10/19/16 Unknown Rx 5/325] Vit No.130/Iron/Folic 1 each PO QDAY #30 tablet 09/02/17 Unknown Rx [ Tablet] Omeprazole Magnesium [PriLOSEC Otc] 20 mg PO QDAY #14 tablet. 09/16/17 Unknown Rx traMADol [Ultram 50 MG tab] 50 mg PO Q6HR PRN #12 tablet 09/16/17 Unknown Rx ALBUTEROL Inhaler [Proair] 2 puff IH QID PRN #1 inhalation 10/16/17 Unknown Rx Ibuprofen [Motrin 800 MG tab] 800 mg PO Q8HR PRN #20 tablet 10/16/17 Unknown Rx traMADol [Ultram] 50 mg PO Q6HR PRN #10 tablet 10/16/17 Unknown Rx ED Review of Systems ROS: Stated complaint: CHEST PAIN,SOB Other details as noted in HPI Constitutional: diaphoresis. denies: fever Respiratory: cough, shortness of breath Cardiovascular: chest pain Gastrointestinal: denies: nausea, vomiting Hematological/Lymphatic: other (bilateral lower extremity pain and swelling) Physical Exam - Physical Exam Vital Signs: Vital Signs 10/16/17 03:08 Temperature 97.8 F Pulse Rate 81 Respiratory 18 Rate Blood Pressure 102/71 O2 Sat by Pulse 100 Oximetry Physical Exam: GENERAL: The patient is well-developed well-nourished female lying on stretcher appearing to be in mild discomfort. [] HEENT: Normocephalic. Atraumatic. Extraocular motions are intact. Patient has moist mucous membranes. NECK: Supple. Trachea midline CHEST/LUNGS: Clear to auscultation. There is no respiratory distress noted. HEART/CARDIOVASCULAR: Regular. There is no tachycardia. There is no gallop rub or murmur. ABDOMEN: Abdomen is soft, nontender. Patient has normal bowel sounds. There is no abdominal distention. SKIN: There is no rash. There is trace pedal edema bilaterally. There is no diaphoresis. NEURO: The patient is awake, alert, and oriented. The patient is cooperative. The patient has normal speech MUSCULOSKELETAL:There is no evidence of acute injury. ED Course Vital Signs 10/16/17 03:08 Temperature 97.8 F Pulse Rate 81 Respiratory 18 Rate Blood Pressure 102/71 O2 Sat by Pulse 100 Oximetry ED Medical Decision Making - Lab Data Result diagrams: 10/16/17 03:23 10/16/17 03:23 Laboratory Tests 04/02/18 04/02/18 04/02/18 03:23 03:23 03:23 WBC 5.6 RBC 3.68 Hgb 11.6 Hct 34.0 MCV 92 MCH 32 MCHC 34 RDW 13.0 L Plt Count 203 Lymph % (Auto) 43.5 H [place] % (Auto) 12.3 H Eos % (Auto) 3.7 Baso % (Auto) 0.9 Lymph # 2.4 [place] # 0.7 Eos # 0.2 Baso # 0.1 Seg Neutrophils % 39.6 L Seg Neutrophils # 2.2 Sodium 139 Potassium 3.6 Chloride 103.4 Carbon Dioxide 21 L Anion Gap 18 BUN 15 Creatinine 0.5 L Estimated GFR > 60 BUN/Creatinine Ratio 30 Glucose 88 Calcium 8.8 Troponin T < 0.010 NT-Pro-B Natriuret Pep HCG, Qual Negative 10/16/17 10/16/17 10/16/17 05:52 08:59 08:59 WBC RBC Hgb Hct MCV MCH MCHC RDW Plt Count Lymph % (Auto) [place] % (Auto) Eos % (Auto) Baso % (Auto) Lymph # [place] # Eos # Baso # Seg Neutrophils % Seg Neutrophils # Sodium Potassium Chloride Carbon Dioxide Anion Gap BUN Creatinine Estimated GFR BUN/Creatinine Ratio Glucose Calcium Troponin T < 0.010 < 0.010 NT-Pro-B Natriuret Pep 44.61 HCG, Qual - EKG Data -: EKG Interpreted by Me EKG shows normal: sinus rhythm Rate: normal - EKG Data When compared to previous EKG there are: no significant change Interpretation: unchanged when compared t (09/16/2017) - Radiology Data Radiology results: report reviewed (chest x-ray, CT chest, bilateral lower extremity Doppler), image reviewed (chest x-ray, CT chest, bilateral lower extremity Doppler) interpreted by me: Chest x-ray-no focal infiltrate, no pneumothorax. Circular density seen on PA and lateral which appears to be extracorporeal [facility] [address] [place] [address] Cat Scan Report Signed Patient: JEN BRAVO MR#: [id number] : 1990 Acct:[id number] Age/Sex: 27 / F ADM Date: 10/16/17 Loc: ED Attending Dr: Ordering Physician: ALEAJNDRO BISWAS MD Date of Service: 10/16/17 Procedure(s): CT angio chest Accession Number(s): [id number] cc: ALEJANDRO BISWAS MD CTA CHEST: HISTORY: Chest pain, shortness of breath. COMPARISON: 10/18/16. TECHNIQUE: Helical CT in 1.25mm intervals following IV contrast. Pulmonary embolus protocol. Sagittal and coronal reformatted images. Rotational MIP images. FINDINGS: Contrast bolus is satisfactory. No pulmonary embolus is identified. Thyroid gland: Normal. Tracheobronchial tree: Normal. Esophagus: Normal. Heart: Normal. Pericardium: Normal. Mediastinum: Normal. Lung [place]: normal. Pleural Spaces: Normal. Musculoskeletal: Normal. IMPRESSION: No evidence for pulmonary embolus. Unremarkable CT chest with contrast. Transcribed By: TTR Dictated By: JOSEFA DENG JR, MD Electronically Authenticated By: JOSEFA DENG JR, MD Signed Date/Time: 10/16/17 1235 DD/ 1234 TD/TT: 10/16/17 1235 SHELLYCHACHO SHERRY Female : 1990 MedRec# [id number] 10/16/17 12:58 - Radiology Dept. Note by SHANNON DSOUZA Acct Num: [id number] : 1990 Patient Age: 27 BLE VENOUS DUPLEX COMPLETED. VAS LAB PRELIMINARY REPORT; NO EVIDENCE OF DVT/SVT NOTED IN VESSELS/SEGMENTS EXAMINED, BLE. PHYSICIANS REPORT TO FOLLOW...(RSK) Initialized on 10/16/17 12:58 - END OF NOTE - Differential Diagnosis PE, ACS, pleurisy, pneumonia, pneumothorax Critical care attestation.: If time is entered above; I have spent that time in minutes in the direct care of this critically ill patient, excluding procedure time. ED Disposition Clinical Impression: Atypical chest pain Disposition: DC-01 TO HOME OR SELFCARE Is pt being admited?: No Does the pt Need Aspirin: No Condition: Stable Instructions: Chest Pain (ED) Additional Instructions: Return to the emergency department immediately should you develop worsening symptoms, fever, inability to tolerate food or liquid or any other concerns. Prescriptions: ALBUTEROL Inhaler [Proair] 2 puff IH QID PRN #1 inhalation PRN Reason: Shortness Of Breath Ibuprofen [Motrin 800 MG tab] 800 mg PO Q8HR PRN #20 tablet PRN Reason: Pain traMADol [Ultram] 50 mg PO Q6HR PRN #10 tablet PRN Reason: Pain Referrals: FARIHA JARRETT MD [Primary Care Provider] - 3-5 Days Time of Disposition: 13:13
[2017-10-16] MEDS ORDERED: SUBLIMAZE IV ONE (11:00)
[2017-10-16] MEDS ORDERED: NACL ONE (12:00)
--- NOTE | 2017-10-16 12:43 | Cat Scan Report ---
CTA CHEST: HISTORY: Chest pain, shortness of breath. COMPARISON: 10/18/16. TECHNIQUE: Helical CT in 1.25mm intervals following IV contrast. Pulmonary embolus protocol. Sagittal and coronal reformatted images. Rotational MIP images. FINDINGS: Contrast bolus is satisfactory. No pulmonary embolus is identified. Thyroid gland: Normal. Tracheobronchial tree: Normal. Esophagus: Normal. Heart: Normal. Pericardium: Normal. Mediastinum: Normal. Lung [place]: normal. Pleural Spaces: Normal. Musculoskeletal: Normal. IMPRESSION: No evidence for pulmonary embolus. Unremarkable CT chest with contrast.
[2017-10-16 13:59] VITALS: BP 104/50
== END 2017-10-16 14:02 | disposition home or self-care (01) ==
LOC: ED 02:46
DX: R07.89 Other chest pain (principal); R06.02 Shortness of breath; M79.604 Pain in right leg; M79.605 Pain in left leg; M79.89 Other specified soft tissue disorders; Z86.711 Personal history of pulmonary embolism
CPT/HCPCS: 36415; 71046; 71275; 80048; 83880; 84484; 84703; 85025; 93005; 93010; 93970; 96374; 96375; 99285; J2405; J3010; Q9967

== ENCOUNTER 2017-12-14 03:29 | Emergency (ER) | payer OTHER ==
[2017-12-14] MEDS ORDERED: ASPIRIN PO ONE (03:52)
[2017-12-14 04:25] LABS: Basophils % (Auto) 0.9 % (0.0-1.8); Eosinophils # (Auto) 0.1 K/mm3 (0.0-0.4); Eosinophils % (Auto) 2.5 % (0.0-4.3); Lymphocytes % (Auto) 35.7 % (13.4-35.0); Mean Corpuscular HGB Conc 34 % (30-34); Mean Corpuscular Hemoglobin 31 pg (28-32); Mean Corpuscular Volume 92 fl (79-97); Monocytes # (Auto) 0.6 K/mm3 (0.0-0.8); Monocytes % (Auto) 11.1 % (0.0-7.3); Red Blood Count 3.82 M/mm3 (3.65-5.03); Red Cell Distribution Width 13.8 % (13.2-15.2)
[2017-12-14 04:33] LABS: Platelet Count 207 K/mm3 (140-440)
[2017-12-14 04:54] LABS: BUN/Creatinine Ratio 22; Blood Urea Nitrogen 13 mg/dL (7-17); Hemolysis Index 4
[2017-12-14] MEDS ORDERED: ASPIRIN ONE (09:11)
[2017-12-14] MEDS ORDERED: NACL 0.9% 1000 ML 1,000 ML ONE (09:59)
[2017-12-14] MEDS ORDERED: SUBLIMAZE ONE (10:00)
[2017-12-14] MEDS ORDERED: NACL 0.9% 1000 ML 2,000 ML IV ONE (11:33)
[2017-12-14] MEDS ORDERED: SUBLIMAZE IV ONE (11:33)
--- NOTE | 2017-12-14 12:24 | XRay Report ---
ROUTINE CHEST, TWO VIEWS: HISTORY: Chest pain, dyspnea. The trachea, heart, mediastinal contour, lung yuan and bony thorax are unremarkable. IMPRESSION: Unremarkable chest x-ray.
--- NOTE | 2017-12-14 12:33 | Emergency Department Report ---
ED Chest Pain HPI - General Chief Complaint: Chest Pain Stated Complaint: CHEST /SOB Time Seen by Provider: 12/14/17 11:21 Source: patient, RN notes reviewed Mode of arrival: Ambulatory Limitations: No Limitations - History of Present Illness Initial Comments: Past medical history: Erosive esophagitis, pulmonary embolus, nasopharyngeal cancer status post chemoradiation This is a 27-year-old female. The patient is previously known to this provider. Presents to the ER with central chest pain that radiates to back and shortness of breath. Her pain is sharp and achy. It increases with palpation, inspiration, decreases with rest. Patient denies diaphoresis. She denies recent travel. She denies leg pain, leg swelling. Patient denies cocaine ingestion. Patient has been seen in this emergency room multiple times for chest pain, and has had multiple negative CAT scans of the chest. She indicates a recent miscarriage, and has had 2 miscarriages within the past year. MD Complaint: chest pain -: Gradual Onset: during rest Pain Location: substernal, left chest, right chest Pain Radiation: back Quality: tightness, aching, heaviness, sharp Consistency: intermittent Improves With: medication-other, rest Worsens With: exertion, inspiration Aspirin use within the Past 7 Days: (0) No - Related Data Home Medications Medication Instructions Recorded Confirmed Last Taken ALBUTEROL Inhaler [Proair] 2 puff IH Q6H PRN 12/14/17 12/14/17 Unknown Ibuprofen [Motrin] 600 mg PO Q6H PRN 12/14/17 12/14/17 Unknown Metoprolol [Lopressor] 12.5 mg PO BID 12/14/17 12/14/17 Unknown Previous Rx's Medication Instructions Recorded Last Taken Type Famotidine [Pepcid] 20 mg PO BID #60 tablet 12/14/17 Unknown Rx Allergies Allergy/AdvReac Type Severity Reaction Status Date / Time No Known Allergies Allergy Unverified 05/06/13 09:35 Heart Score - HEART Score History: Moderately suspicious EKG: Normal Age: < 45 Risk factors: No known risk factors Troponin: < normal limit HEART Score: 1 - Critical Actions Critical Actions: 0-3 pts:0.9-1.7%risk of adverse cardiac event.Candidate for discharge ED Review of Systems ROS: Stated complaint: CHEST /SOB Other details as noted in HPI Constitutional: malaise. denies: fever Eyes: denies: eye discharge ENT: denies: epistaxis Respiratory: denies: wheezing Cardiovascular: chest pain Gastrointestinal: denies: abdominal pain Genitourinary: denies: dysuria Musculoskeletal: back pain Skin: denies: lesions Neurological: weakness Psychiatric: anxiety ED Past Medical Hx - Past Medical History Previous Medical History?: Yes Hx Pulmonary Embolism: Yes Additional medical history: Nasopharyngeal CA status post XRT and chemotherapy 2011also hx of pna, DVT - Surgical History Past Surgical History?: Yes Additional Surgical History: PEG tube placement and removal, port placement and removal - Social History Smoking Status: Never Smoker Substance Use Type: None - Medications Home Medications: Home Medications Medication Instructions Recorded Confirmed Last Taken Type ALBUTEROL Inhaler [Proair] 2 puff IH Q6H PRN 12/14/17 12/14/17 Unknown History Famotidine [Pepcid] 20 mg PO BID #60 tablet 12/14/17 Unknown Rx Ibuprofen [Motrin] 600 mg PO Q6H PRN 12/14/17 12/14/17 Unknown History Metoprolol [Lopressor] 12.5 mg PO BID 12/14/17 12/14/17 Unknown History ED Physical Exam - General Limitations: No Limitations General appearance: alert, in distress - Head Head exam: Present: atraumatic, normocephalic - Eye Eye exam: Present: normal appearance, EOMI. Absent: nystagmus - ENT ENT exam: Present: normal exam, normal orophraynx, mucous membranes moist, normal external ear exam - Neck Neck exam: Present: normal inspection, full ROM - Respiratory Respiratory exam: Present: normal lung sounds bilaterally, chest wall tenderness. Absent: respiratory distress - Cardiovascular Cardiovascular Exam: Present: regular rate, normal rhythm, normal heart sounds. Absent: systolic murmur, diastolic murmur, rubs, gallop - GI/Abdominal GI/Abdominal exam: Present: soft, normal bowel sounds. Absent: distended, tenderness, guarding, rebound, rigid, pulsatile mass - Extremities Exam Extremities exam: Present: normal inspection, full ROM, normal capillary refill , other (there is no palpable cord. There is negative Homans sign.). Absent: tenderness, pedal edema, joint swelling, calf tenderness - Back Exam Back exam: Present: normal inspection, full ROM. Absent: tenderness, CVA tenderness (R), paraspinal tenderness, vertebral tenderness - Neurological Exam Neurological exam: Present: alert, oriented X3, CN II-XII intact, normal gait, other (Extraocular movements intact. Tongue midline. No facial droop. Facial sensation intact to light touch in the V1, V2, V3 distribution bilaterally. 5 and 5 strength in 4 extremities.. Sensation is intact to light touch in 4 extremities.). Absent: motor sensory deficit - Psychiatric Psychiatric exam: Present: normal affect, normal mood - Skin Skin exam: Present: warm, dry, intact, normal color. Absent: rash ED Course Vital Signs 12/14/17 12/14/17 12/14/17 03:46 07:14 07:15 Temperature 98.5 F Pulse Rate 85 Respiratory 18 Rate Blood Pressure 105/67 92/45 92/45 Blood Pressure [Left] O2 Sat by Pulse 100 100 Oximetry 12/14/17 12/14/17 12/14/17 07:30 07:45 08:00 Temperature Pulse Rate 68 68 67 Respiratory 9 L 13 9 L Rate Blood Pressure 89/44 99/55 106/65 Blood Pressure [Left] O2 Sat by Pulse 100 100 100 Oximetry 12/14/17 12/14/17 08:15 14:49 Temperature Pulse Rate 69 62 Respiratory 14 18 Rate Blood Pressure 98/59 Blood Pressure 100/58 [Left] O2 Sat by Pulse 100 100 Oximetry DANIEL score - Daniel Score Age > 65: (0) No Aspirin use within the Past 7 Days: (0) No 3 or more CAD Risk Factors: (0) No 2 or more Angina events in past 24 hrs: (0) No Known CAD with more than 50% Stenosis: (0) No Elevated Cardiac Markers: (0) No ST Deviation Greater than 0.5mm: (0) No DANIEL Score: 0 ED Medical Decision Making - Lab Data Result diagrams: 12/14/17 03:56 12/14/17 03:56 Vital Signs 12/14/17 12/14/17 12/14/17 03:46 07:14 07:15 Temperature 98.5 F Pulse Rate 85 Respiratory 18 Rate Blood Pressure 105/67 92/45 92/45 Blood Pressure [Left] O2 Sat by Pulse 100 100 Oximetry 12/14/17 12/14/17 12/14/17 07:30 07:45 08:00 Temperature Pulse Rate 68 68 67 Respiratory 9 L 13 9 L Rate Blood Pressure 89/44 99/55 106/65 Blood Pressure [Left] O2 Sat by Pulse 100 100 100 Oximetry 12/14/17 12/14/17 08:15 14:49 Temperature Pulse Rate 69 62 Respiratory 14 18 Rate Blood Pressure 98/59 Blood Pressure 100/58 [Left] O2 Sat by Pulse 100 100 Oximetry Lab Results 12/14/17 12/14/17 12/14/17 Range/Units 03:56 03:56 03:56 WBC 5.6 (4.5-11.0) K/mm3 RBC 3.82 (3.65-5.03) M/mm3 Hgb 12.0 (10.1-14.3) gm/dl Hct 35.0 (30.3-42.9) % MCV 92 (79-97) fl MCH 31 (28-32) pg MCHC 34 (30-34) % RDW 13.8 (13.2-15.2) % Plt Count 207 (140-440) K/mm3 Lymph % (Auto) 35.7 H (13.4-35.0) % [place] % (Auto) 11.1 H (0.0-7.3) % Eos % (Auto) 2.5 (0.0-4.3) % Baso % (Auto) 0.9 (0.0-1.8) % Lymph # 2.0 (1.2-5.4) K/mm3 [place] # 0.6 (0.0-0.8) K/mm3 Eos # 0.1 (0.0-0.4) K/mm3 Baso # 0.0 (0.0-0.1) K/mm3 Seg Neutrophils % 49.8 (40.0-70.0) % Seg Neutrophils # 2.8 (1.8-7.7) K/mm3 D-Dimer (0-234) ng/mlDDU Sodium 138 (137-145) mmol/L Potassium 3.6 (3.6-5.0) mmol/L Chloride 105.4 (98-107) mmol/L Carbon Dioxide 20 L (22-30) mmol/L Anion Gap 16 mmol/L BUN 13 (7-17) mg/dL Creatinine 0.6 L (0.7-1.2) mg/dL Estimated GFR > 60 ml/min BUN/Creatinine Ratio 22 % Glucose 90 (65-100) mg/dL Calcium 9.0 (8.4-10.2) mg/dL Troponin T < 0.010 (0.00-0.029) ng/mL HCG, Qual Positive (Negative) Urine Color (Yellow) Urine Turbidity (Clear) Urine pH (5.0-7.0) Ur Specific [place] (1.003-1.030) Urine Protein (Negative) mg/dL Urine Glucose (UA) (Negative) mg/dL Urine Ketones (Negative) mg/dL Urine Blood (Negative) Urine Nitrite (Negative) Urine Bilirubin (Negative) Urine Urobilinogen (<2.0) mg/dL Ur Leukocyte Esterase (Negative) Urine WBC (Auto) (0.0-6.0) /HPF Urine RBC (Auto) (0.0-6.0) /HPF U Epithel Cells (Auto) (0-13.0) /HPF Urine Bacteria (Auto) (Negative) /HPF Urine Mucus /HPF 12/14/17 12/14/17 12/14/17 Range/Units 06:52 10:34 13:10 WBC (4.5-11.0) K/mm3 RBC (3.65-5.03) M/mm3 Hgb (10.1-14.3) gm/dl Hct (30.3-42.9) % MCV (79-97) fl MCH (28-32) pg MCHC (30-34) % RDW (13.2-15.2) % Plt Count (140-440) K/mm3 Lymph % (Auto) (13.4-35.0) % [place] % (Auto) (0.0-7.3) % Eos % (Auto) (0.0-4.3) % Baso % (Auto) (0.0-1.8) % Lymph # (1.2-5.4) K/mm3 [place]ier # (0.0-0.8) K/mm3 Eos # (0.0-0.4) K/mm3 Baso # (0.0-0.1) K/mm3 Seg Neutrophils % (40.0-70.0) % Seg Neutrophils # (1.8-7.7) K/mm3 D-Dimer 204.83 (0-234) ng/mlDDU Sodium (137-145) mmol/L Potassium (3.6-5.0) mmol/L Chloride (98-107) mmol/L Carbon Dioxide (22-30) mmol/L Anion Gap mmol/L BUN (7-17) mg/dL Creatinine (0.7-1.2) mg/dL Estimated GFR ml/min BUN/Creatinine Ratio % Glucose (65-100) mg/dL Calcium (8.4-10.2) mg/dL Troponin T < 0.010 < 0.010 (0.00-0.029) ng/mL HCG, Qual (Negative) Urine Color (Yellow) Urine Turbidity (Clear) Urine pH (5.0-7.0) Ur Specific [place] (1.003-1.030) Urine Protein (Negative) mg/dL Urine Glucose (UA) (Negative) mg/dL Urine Ketones (Negative) mg/dL Urine Blood (Negative) Urine Nitrite (Negative) Urine Bilirubin (Negative) Urine Urobilinogen (<2.0) mg/dL Ur Leukocyte Esterase (Negative) Urine WBC (Auto) (0.0-6.0) /HPF Urine RBC (Auto) (0.0-6.0) /HPF U Epithel Cells (Auto) (0-13.0) /HPF Urine Bacteria (Auto) (Negative) /HPF Urine Mucus /HPF 12/14/17 Range/Units Unknown WBC (4.5-11.0) K/mm3 RBC (3.65-5.03) M/mm3 Hgb (10.1-14.3) gm/dl Hct (30.3-42.9) % MCV (79-97) fl MCH (28-32) pg MCHC (30-34) % RDW (13.2-15.2) % Plt Count (140-440) K/mm3 Lymph % (Auto) (13.4-35.0) % [place] % (Auto) (0.0-7.3) % Eos % (Auto) (0.0-4.3) % Baso % (Auto) (0.0-1.8) % Lymph # (1.2-5.4) K/mm3 [place] # (0.0-0.8) K/mm3 Eos # (0.0-0.4) K/mm3 Baso # (0.0-0.1) K/mm3 Seg Neutrophils % (40.0-70.0) % Seg Neutrophils # (1.8-7.7) K/mm3 D-Dimer (0-234) ng/mlDDU Sodium (137-145) mmol/L Potassium (3.6-5.0) mmol/L Chloride (98-107) mmol/L Carbon Dioxide (22-30) mmol/L Anion Gap mmol/L BUN (7-17) mg/dL Creatinine (0.7-1.2) mg/dL Estimated GFR ml/min BUN/Creatinine Ratio % Glucose (65-100) mg/dL Calcium (8.4-10.2) mg/dL Troponin T (0.00-0.029) ng/mL HCG, Qual (Negative) Urine Color Straw (Yellow) Urine Turbidity Clear (Clear) Urine pH 8.0 H (5.0-7.0) Ur Specific [place] 1.036 H (1.003-1.030) Urine Protein <15 mg/dl (Negative) mg/dL Urine Glucose (UA) Neg (Negative) mg/dL Urine Ketones Neg (Negative) mg/dL Urine Blood Sm (Negative) Urine Nitrite Neg (Negative) Urine Bilirubin Neg (Negative) Urine Urobilinogen < 2.0 (<2.0) mg/dL Ur Leukocyte Esterase Tr (Negative) Urine WBC (Auto) 1.0 (0.0-6.0) /HPF Urine RBC (Auto) 1.0 (0.0-6.0) /HPF U Epithel Cells (Auto) 3.0 (0-13.0) /HPF Urine Bacteria (Auto) 1+ (Negative) /HPF Urine Mucus Few /HPF - EKG Data -: EKG Interpreted by Hi EKG shows normal: sinus rhythm, axis, intervals, QRS complexes, ST-T waves - EKG Data 12/14/17 15:33 Normal sinus, 83 bpm, normal axis, normal intervals, not a STEMI. Repeat EKG is unchanged. - Radiology Data Radiology results: report reviewed, image reviewed CT scan of the chest, interpreted by radiology, negative for acute disease. - Medical Decision Making Differential diagnosis, including but not limited to: Costochondritis, erosive esophagitis, pneumonia, acute coronary syndrome, hiatal hernia, pericarditis, myocarditis, pulmonary embolus Assessment and plan: 27-year-old female, reporting 2 miscarriages this year, also indicates incidental change in facial coloration, has facial discoloration that appears to be consistent with a butterfly rash, possible lupus. Endorses pleuritic chest pain and shortness of breath, did not feel that patient was low pretest probability, therefore d-dimer not applicable, therefore obtain CT scan of the chest. CT scan of the chest was negative. EKG unchanged 2. AMA panel is pending. Troponin negative 3. Given negative troponin, lack of fever, lack of tachycardia, myocarditis is unlikely. Equal pulses in the upper and lower extremities, aortic disease is unlikely. Low risk by DANIEL score, low risk by heart score, patient can follow up with outpatient cardiology for her chest pain, although given an endoscopy performed in 2016, it is most likely a component of erosive esophagitis. She will also need to follow up with outpatient gastroenterology. Critical care attestation.: If time is entered above; I have spent that time in minutes in the direct care of this critically ill patient, excluding procedure time. ED Disposition Clinical Impression: Chest pressure Disposition: DC-01 TO HOME OR SELFCARE Is pt being admited?: No Does the pt Need Aspirin: No Condition: Good Instructions: Gastroesophageal Reflux Disease (ED) Additional Instructions: Avoid consumption of Motrin, ibuprofen, Naprosyn, Goody powders. Avoid consumption of heavy, spicy foods. Follow up with any of the listed cardiology groups within the next 3-5 days. Follow up with the gastroenterology group within the next month. Laboratory studies were sent today to screen for lupus. They will result within the next 3 -5 days. Have a primary care doctor contact the medical records department to obtain these results. Return to the ER right away with new pain, worse pain, migration of pain, fevers, chills, lethargy, irritability, projectile vomiting, change in mental status, confusion, inability to tolerate liquid feeds. Referrals: PRIMARY CARE, [Primary Care Provider] - 3-5 Days [facility] [Provider Group] - 3-5 Days [facility] [Provider Group] - 3-5 Days [facility] [Provider Group] - 3-5 Days
--- NOTE | 2017-12-14 14:17 | Cat Scan Report ---
CTA CHEST: HISTORY: chest pain. COMPARISON: 10/16/17. TECHNIQUE: Helical CT in 1.25mm intervals following IV contrast. Pulmonary embolus protocol. Sagittal and coronal reformatted images. Rotational MIP images. FINDINGS: Contrast bolus is satisfactory. No pulmonary embolus is identified. Thyroid gland: Normal. Tracheobronchial tree: Normal. Esophagus: Normal. Heart: Normal. Pericardium: Normal. Mediastinum: Normal. Lung [place]: normal. Pleural Spaces: Normal. Musculoskeletal: Normal. IMPRESSION: No evidence for pulmonary embolus. Unremarkable CT chest with contrast. No change since 10/16/17 exam.
[2017-12-14 14:51] VITALS: BP 100/58
[2017-12-14 15:31] LABS: Bacteria,Urine 1+ /HPF (Negative); Bilirubin,Urine NEG (Negative); Blood,Urine SM (Negative); Color,Urine Straw (Yellow); Mucus,Urine FEW /HPF; Protein,Urine <15 mg/dL mg/dL (Negative); Urobilinogen,Urine < 2.0 mg/dL (<2.0)
[2017-12-14] MEDS ORDERED: ALUM-MAG HYDROX-SIMETH 200-200-20MG/5ML PO ONE (15:32)
[2017-12-14] MEDS ORDERED: CARAFATE PO ONE (15:32)
[2017-12-14] MEDS ORDERED: PEPCID PO ONE (15:32)
[2017-12-18 22:06] LABS: ANA Screen, IFA Positive (Negative)
== END 2017-12-14 16:00 | disposition home or self-care (01) ==
LOC: ED 03:29
DX: R07.89 Other chest pain (principal); Z86.711 Personal history of pulmonary embolism
CPT/HCPCS: 36415; 71046; 71275; 80048; 81001; 84484; 84703; 85025; 85379; 86038; 93005; 93010; 96365; 96375; 99285; J3010; J7030; Q9967

== ENCOUNTER 2018-10-15 03:03 | Emergency (ER) | payer OTHER ==
[2018-10-15 03:21] VITALS: BP 136/86
--- NOTE | 2018-10-15 03:49 | XRay Report ---
PROCEDURE: XR CHEST ROUTINE 2V TECHNIQUE: PA and lateral views of the chest were obtained. HISTORY: chestpain COMPARISONS: 12/31/2017 FINDINGS: The heart size and mediastinum appear normal. The lungs are clear. Pleural fluid is not seen. The bon es and soft tissues are well-maintained. IMPRESSION: No acute cardiopulmonary process.. This document is electronically signed by Conrad Paul MD., October 15 2018 03:47:04 AM ET
== END 2018-10-15 07:32 | disposition left against medical advice (07) ==
LOC: ED 03:03
DX: R07.89 Other chest pain (principal); Z53.21 Procedure and treatment not carried out due to patient leaving prior to being seen by health care provider
CPT/HCPCS: 71046; 93005; 93010

== ENCOUNTER 2018-12-12 03:22 | Emergency (ER) | payer OTHER ==
[2018-12-12 03:52] LABS: Basophils % (Auto) 0.3 % (0.0-1.8); Eosinophils # (Auto) 0.1 K/mm3 (0.0-0.4); Eosinophils % (Auto) 0.8 % (0.0-4.3); Hematocrit 32.9 % (30.3-42.9); Hemoglobin 10.9 gm/dl (10.1-14.3); Lymphocytes % (Auto) 9.5 % (13.4-35.0); Mean Corpuscular HGB Conc 33 % (30-34); Mean Corpuscular Volume 84 fl (79-97); Monocytes # (Auto) 0.7 K/mm3 (0.0-0.8); Monocytes % (Auto) 6.9 % (0.0-7.3); Platelet Count 207 K/mm3 (140-440); Red Blood Count 3.92 M/mm3 (3.65-5.03); Red Cell Distribution Width 15.8 % (13.2-15.2)
--- NOTE | 2018-12-12 06:43 | Ultrasound Report ---
PROCEDURE: US OB <= 14 WEEKS FETUS TECHNIQUE: Transabdominal imaging was obtained of the pelvis. HISTORY: vag bleeding COMPARISONS: None FINDINGS: The uterus is anteverted measuring 11.1 x 10.8 x 7.3 cm. The endometrium is thickened measuring 18.1 mm and has a heterogeneous echotexture. An IUP is not identified. There are 2 small cystic structures in expected position of the vagina. Free fluid is not seen. The left ovary is normal in size contour and echotexture measuring 3.1 x 1.6 x 1.7 cm. The right ovary measures 3.1 x 2.4 x 2.2 cm. Within the right ovary is an anechoic cyst measuring 2.1 cm in diameter. IMPRESSION: No evidence of an intact IUP. Indeterminate cystic structures in the vagina along with heterogeneous thickened endometrium which ma y represent retained products of conception and clot. 2.1 cm benign cysts in the right ovary. No evidence of free fluid or adnexal mass. This document is electronically signed by Conrad Paul MD., Dec 12 2018 06:41:03 AM ET
[2018-12-12] MEDS ORDERED: NACL 0.9% 1000 ML 1,000 ML IV ONE ×2 (08:10→11:17)
[2018-12-12] MEDS ORDERED: ZOFRAN IV ONE (08:17)
[2018-12-12] MEDS ORDERED: SUBLIMAZE IV ONE (08:17)
--- NOTE | 2018-12-12 08:23 | Emergency Department Report ---
HPI - General Chief Complaint: Vaginal Bleeding Time Seen by Provider: 12/12/18 08:09 - HPI HPI: Room 26 The patient is a 28-year-old female presenting with a chief complaint of vaginal bleeding. The patient states yesterday she developed heavy vaginal bleeding passing blood clots. Patient says she went through 3 maxipads last night. Patient states she also developed lower abdominal pain and back pain described as a pressure. Of note the patient was seen at [facility] ED 12/10/2018 and diagnosed with a threatened . The patient states they saw "an empty sac" in the uterus on ultrasound Location: Pelvis Duration: [See above] Quality: Pressure Severity: Moderate Modifying factors: [see above] Context: [see above] Mode of transportation: [not driving] ED Past Medical Hx - Past Medical History Previous Medical History?: Yes Hx Deep Vein Thrombosis: Yes Hx Pulmonary Embolism: Yes Additional medical history: SVT, Nasopharyngeal CA status post XRT and chem otherapy 2011also hx of pna, DVT. This record states history of esophageal carcinoma and pulmonary embolism. Patient states that she has not followed up since Dr. ALEXX Mccormick moved [facility]. - Surgical History Past Surgical History?: Yes Additional Surgical History: PEG tube placement and removal, port placement and removal - Family History Family history: no significant - Social History Smoking Status: Never Smoker Substance Use Type: None - Medications Home Medications: Home Medications Medication Instructions Recorded Confirmed Last Taken Type Levothyroxine [Synthroid] 50 mcg PO DAILY@0600 #30 tablet 01/02/18 Unknown Rx Metoprolol [Lopressor TAB] 12.5 mg PO 01/02/18 Unknown History HYDROcodone/APAP 5-325 [Berwick 1 each PO Q6HR PRN #10 tablet 06/14/18 Unknown Rx 5/325] Penicillin V Potassium 500 mg PO QID #40 tablet 06/14/18 Unknown Rx HYDROcodone/APAP 5-325 [Berwick 1 - 2 each PO Q6HR PRN #14 tablet 12/12/18 Unknown Rx 5/325] Ibuprofen [Motrin 800 MG tab] 800 mg PO Q8HR PRN #20 tablet 12/12/18 Unknown Rx Methylergonovine [Methergine] 0.2 mg PO Q8HR #6 tablet 12/12/18 Unknown Rx ED Review of Systems ROS: Stated complaint: VAG BLEEDING/POSS MISCARRIAGE Other details as noted in HPI Constitutional: no symptoms reported Eyes: denies: eye pain ENT: denies: throat pain Respiratory: no symptoms reported Cardiovascular: denies: chest pain Endocrine: no symptoms reported Gastrointestinal: abdominal pain Genitourinary: abnormal menses Neurological: denies: headache Physical Exam - Physical Exam Vital Signs: Vital Signs 12/12/18 12/12/18 12/12/18 03:30 03:34 07:37 Temperature 98 F 98.0 F 98.4 F Pulse Rate 98 H 110 H 74 Respiratory 18 18 16 Rate Blood Pressure 124/60 124/60 Blood Pressure 96/50 [Left] O2 Sat by Pulse 98 99 100 Oximetry 12/12/18 07:38 Temperature Pulse Rate Respiratory 16 Rate Blood Pressure Blood Pressure [Left] O2 Sat by Pulse 100 Oximetry Vital Signs 12/12/18 12/12/18 12/12/18 03:30 03:34 07:37 Temperature 98 F 98.0 F 98.4 F Pulse Rate 98 H 110 H 74 Respiratory 18 18 16 Rate Blood Pressure 124/60 124/60 Blood Pressure 96/50 [Left] O2 Sat by Pulse 98 99 100 Oximetry 12/12/18 12/12/18 12/12/18 07:38 11:11 12:53 Temperature 98.7 F Pulse Rate 70 75 Respiratory 16 16 Rate Blood Pressure Blood Pressure 93/56 104/63 [Left] O2 Sat by Pulse 100 100 Oximetry Physical Exam: GENERAL: The patient is well-developed well-nourished female lying on stretcher not appearing to be in acute distress. [] HEENT: Normocephalic. Atraumatic. Extraocular motions are intact. Patient has moist mucous membranes. NECK: Supple. Trachea midline CHEST/LUNGS: Clear to auscultation. There is no respiratory distress noted. HEART/CARDIOVASCULAR: Regular. There is no tachycardia. There is no gallop rub or murmur. ABDOMEN: Abdomen is soft, mild discomfort to palpation in the suprapubic and left lower. Patient has normal bowel sounds. There is no abdominal distention. SKIN: There is no rash. There is no edema. There is no diaphoresis. NEURO: The patient is awake, alert, and oriented. The patient is cooperative. The patient has normal speech MUSCULOSKELETAL: There is no evidence of acute injury. ED Course Vital Signs 12/12/18 12/12/18 12/12/18 03:30 03:34 07:37 Temperature 98 F 98.0 F 98.4 F Pulse Rate 98 H 110 H 74 Respiratory 18 18 16 Rate Blood Pressure 124/60 124/60 Blood Pressure 96/50 [Left] O2 Sat by Pulse 98 99 100 Oximetry 12/12/18 07:38 Temperature Pulse Rate Respiratory 16 Rate Blood Pressure Blood Pressure [Left] O2 Sat by Pulse 100 Oximetry - Consultations Consultation #1: 12/12/18 11:[address] Obregon- recommends Methergine 0.2 mg every 8 hours 6 doses ED Medical Decision Making - Lab Data Result diagrams: 12/12/18 03:35 - Radiology Data Radiology results: report reviewed (pelvic ultrasound), image reviewed (pelvic ultrasound) [facility] [address] [id number] Ultrasound Report Signed Patient: JEN BRAVO MR# : [id number] : 1990 Acct:[id number] Age/Sex: 28 / F ADM Date: 12/12/18 Loc: ED Attending Dr: Ordering Physician: NITZA MARKS NP Date of Service: 12/12/18 Procedure(s): US OB <= 14 weeks fetus Accession Number(s): [id number] cc: NITZA MARKS NP PROCEDURE: US OB <= 14 WEEKS FETUS TECHNIQUE: Transabdominal imaging was obtained of the pelvis. HISTORY: vag bleeding COMPARISONS: None FINDINGS: The uterus is anteverted measuring 11.1 x 10.8 x 7.3 cm. The endometrium is thickened measuring 18.1 mm and has a heterogeneous echotexture. An IUP is not identified. There are 2 small cystic structures in expected position of the vagina. Free fluid is not seen. The left ovary is normal in size contour and echotexture measuring 3.1 x 1.6 x 1.7 cm. The right ovary measures 3.1 x 2.4 x 2.2 cm. Within the right ovary is an anechoic cyst measuring 2.1 cm in diameter. IMPRESSION: No evidence of an intact IUP. Indeterminate cystic structures in the vagina along with heterogeneous thickened endometrium which may represent retained products of conception and clot. 2.1 cm benign cysts in the right ovary. No evidence of free fluid or adnexal mass. This document is electronically signed by Ngoc Paul MD., Dec 12 2018 06:41:03 AM ET Transcribed By: RB Dictated By: NGOC PAUL MD Electronically Authenticated By: NGOC PAUL MD Signed Date/Time: 12/12/18642 DD/ 1 TD/TT: 12/12/18632 - Differential Diagnosis incomplete , spontaneous , threatened Critical care attestation.: If time is entered above; I have spent that time in minutes in the direct care of this critically ill patient, excluding procedure time. ED Disposition Clinical Impression: Spontaneous Disposition: DC-01 TO HOME OR SELFCARE Is pt being admited?: No Does the pt Need Aspirin: No Condition: Stable Prescriptions: Methylergonovine [Methergine] 0.2 mg PO Q8HR #6 tablet Ibuprofen [Motrin 800 MG tab] 800 mg PO Q8HR PRN #20 tablet PRN Reason: Pain, Moderate (4-6) HYDROcodone/APAP 5-325 [Berwick 5/325] 1 - 2 each PO Q6HR PRN #14 tablet PRN Reason: Pain Referrals: RICHMOND GRAY MD [Primary Care Provider] - 3-5 Days IRINA SALAS MD [Staff Physician] - 3-5 Days Time of Disposition: 12:56
[2018-12-12 14:19] LABS: Hemoglobin 9.9 gm/dl (10.1-14.3)
[2018-12-12 15:20] VITALS: BP 104/63
== END 2018-12-12 14:05 | disposition home or self-care (01) ==
LOC: ED 03:22
DX: O03.9 Complete or unspecified spontaneous abortion without complication (principal); Z86.718 Personal history of other venous thrombosis and embolism; Z86.711 Personal history of pulmonary embolism
CPT/HCPCS: 36415; 76801; 84702; 85014; 85018; 85025; 86900; 86901; 96374; 96375; 99284; J2405; J3010; J7030

== ENCOUNTER 2019-10-25 19:43 | Observation (INO) | payer OTHER ==
[2019-10-25] MEDS ORDERED: LACTATED RINGERS 1,000 ML IV ONE ×2 (20:20→21:28)
[2019-10-25 20:44] LABS: Bilirubin,Urine NEG (Negative); Blood,Urine NEG (Negative); Color,Urine Straw (Yellow); Protein,Urine <15 mg/dL mg/dL (Negative); Urobilinogen,Urine < 2.0 mg/dL (<2.0); WBC,Urine < 1.0 /HPF (0.0-6.0)
[2019-10-25] MEDS ORDERED: TERBUTALINE 1 MG/1 ML INJ IVP ONE (21:28)
[2019-10-25] MEDS ORDERED: AMPICILLIN/NS 2 GM/100 ML 2 GM/100 ML BAG IV ONE (22:26)
[2019-10-25] MEDS ORDERED: diphenhydrAMINE 25 MG CAP PO PRN (22:26)
[2019-10-25] MEDS ORDERED: DOCUSATE SODIUM 100 MG CAP PO PRN (22:26)
[2019-10-25] MEDS ORDERED: SIMETHICONE 80 MG CHEW TAB PO PRN (22:26)
[2019-10-25] MEDS ORDERED: SODIUM CHLORIDE NASAL SPRAY 44ML NS PRN (22:26)
[2019-10-25] MEDS ORDERED: CALCIUM GLUCONATE 1000 MG/10 ML INJ IV ONE (22:26)
[2019-10-25] MEDS ORDERED: MAGNESIUM HYDROXIDE (MOM) ORAL LIQD UDC PO PRN (22:26)
[2019-10-25] MEDS ORDERED: ONDANSETRON 4 MG/2 ML INJ IV PRN (22:26)
[2019-10-25] MEDS ORDERED: MAGNESIUM SULFATE 4 GM/100 ML BAG IV ONE (22:26)
--- NOTE | 2019-10-26 00:26 | Ultrasound Report ---
ULTRASOUND OBSTETRIC LIMITED ULTRASOUND OBSTETRIC TRANSVAGINAL ULTRASOUND BIOPHYSICAL PROFILE INDICATION / CLINICAL INFORMATION: 31 wks, contractions,. Clinical Gestational Age (GA): 30.1 weeks.days TECHNIQUE: Transabdominal and transvaginal scanning was performed. COMPARISON: None available. FINDINGS: BREATHING MOVEMENT = 2 GROSS BODY MOVEMENT = 2 TONE = 2 QUALITATIVE AMNIOTIC FLUID VOLUME = 2 TOTAL BIOPHYSICAL SCORE = 8/8 HEART RATE (beats per minute): 141 AMNIOTIC FLUID INDEX (cm) = 15.3 (normal = 7-24 cm) PRESENTATION: Transverse. ADDITIONAL FINDINGS: Cervical length is 4.6 cm. IMPRESSION: 1. Biophysical Score = 8/8 2. Amniotic fluid index within normal limits. Signer Name: Rosa Canela MD Signed: 10/26/2019 12:21 AM Workstation Name: [id number]
[2019-10-26 00:39] LABS: Basophils % (Auto) 0.3 % (0.0-1.8); Eosinophils # (Auto) 0.1 K/mm3 (0.0-0.4); Eosinophils % (Auto) 0.7 % (0.0-4.3); Hematocrit 25.9 % (30.3-42.9); Hemoglobin 8.2 gm/dl (10.1-14.3); Lymphocytes # (Auto) 1.1 K/mm3 (1.2-5.4); Lymphocytes % (Auto) 12.1 % (13.4-35.0); Mean Corpuscular HGB Conc 32 % (30-34); Mean Corpuscular Volume 83 fl (79-97); Monocytes # (Auto) 0.9 K/mm3 (0.0-0.8); Monocytes % (Auto) 9.7 % (0.0-7.3); Platelet Count 232 K/mm3 (140-440); Red Blood Count 3.13 M/mm3 (3.65-5.03)
[2019-10-26] MEDS: MAGNESIUM SULFATE 40GM/1000ML 40 GM/1,000 ML BAG IV SCH ×2 (02:55→21:12)
[2019-10-26] MEDS ORDERED: MAGNESIUM SULFATE 4 GM/100 ML BAG IV ONE (03:00)
[2019-10-26] MEDS ORDERED: BUTORPHANOL 2 MG/1 ML INJ IV PRN (05:13)
[2019-10-26] MEDS ORDERED: AMPICILLIN/NS 2 GM/100 ML 2 GM/100 ML BAG IV ONE ×2 (07:31→07:36)
[2019-10-26] MEDS: LACTATED RINGERS 1,000 ML IV SCH ×2 (07:57→21:13)
[2019-10-26 10:22] LABS: Alanine Aminotransferase 7 units/L (7-56); BUN/Creatinine Ratio 10; Blood Urea Nitrogen 4 mg/dL (7-17); Calcium 7.9 mg/dL (8.4-10.2); Hemolysis Index 5
[2019-10-26] MEDS: AMPICILLIN/NS 1 GM/50 ML 1 GM/50 ML BAG IV SCH ×3 (11:26→19:23)
[2019-10-26] MEDS: BETAMET ACET/BETAMET NA PH 6 MG/ML INJ 5 ML MDV IM SCH (12:05)
[2019-10-26] MEDS ORDERED: BETAMET ACET/BETAMET NA PH 6 MG/ML INJ 5 ML MDV IM ONE (12:55)
[2019-10-26] MEDS: PRENATAL VIT27-FE FUMARATE-FOLIC ACID VIT TAB PO SCH (14:07)
--- NOTE | 2019-10-26 14:22 | History and Physical Report ---
History of Present Illness Date of examination: 10/26/19 Date of admission: 10/25/19 22:28 Chief complaint: contractions History of present illness: Pt is a 29 year old -Luxembourger female ERNIE 12/26/19 at 31w2d who presents with regular painful contractions since 1230 pm today. She denies recent intercourse. She denies vaginal bleeding or leakage of fluid. While being evaluated in triage, she continued to contract despite IV hydration, and she declined a trial of terbutaline because she wants avoid rapid heart beat. She has one visit at [facility] on 09/09/19 at 24 wks complicated by late entry to care, h/o nasopharyngeal cancer s/p chemotherapy and radiation in 2011, h/o DVT non-compliant with anticoagulation, insufficient care Past History Past Medical History: thyroid disease (Hypothyroidism ), deep vein thrombosis (2011 or , on Coumadin for 3 months, lost to follow up ), other (Nasopharyngeal cancer in 2011 treated with chemo and radiation ) Family/Genetic History: none Social history: no significant social history - Obstetrical History Expected Date of Delivery: 12/26/19 Actual Gestation: 31 Week(s) 3 Day(s) : 4 Para: 3 Hx # Term Pregnancies: 3 Number of Pregnancies: 0 Spontaneous Abortions: 0 Induced : 0 Number of Living Children: 3 Medications and Allergies Allergies Allergy/AdvReac Type Severity Reaction Status Date / Time No Known Allergies Allergy Unverified 05/06/13 09:35 Home Medications Medication Instructions Recorded Confirmed Last Taken Type Levothyroxine [Synthroid] 50 mcg PO DAILY@0600 #30 tablet 01/02/18 Unknown Rx Metoprolol [Lopressor TAB] 12.5 mg PO 01/02/18 Unknown History HYDROcodone/APAP 5-325 [[place] 1 each PO Q6HR PRN #10 tablet 06/14/18 Unknown Rx 5/325] Penicillin V Potassium 500 mg PO QID #40 tablet 06/14/18 Unknown Rx HYDROcodone/APAP 5-325 [[place] 1 - 2 each PO Q6HR PRN #14 tablet 12/12/18 Unknown Rx 5/325] Ibuprofen [Motrin 800 MG tab] 800 mg PO Q8HR PRN #20 tablet 12/12/18 Unknown Rx Methylergonovine [Methergine] 0.2 mg PO Q8HR #6 tablet 12/12/18 Unknown Rx Active Meds: Active Medications Acetaminophen (Tylenol) 650 mg PO Q4H PRN PRN Reason: Pain MILD(1-3)/Fever >100.5/JAMISON Betamethasone Acet/Betameth SodPhos ([place] Soluspan) 12 mg IM Q24HR [facility] Last Admin: 10/26/19 12:05 Dose: 12 mg Documented by: Butorphanol Tartrate (Stadol) 1 mg IV Q2H PRN PRN Reason: Labor Pain Last Admin: 10/26/19 05:48 Dose: 1 mg Documented by: Diphenhydramine HCl (Benadryl) 25 mg PO Q6H PRN PRN Reason: Itching Docusate Sodium (Colace) 100 mg PO Q12H PRN PRN Reason: Constipation Lactated Ringer's (Lactated Ringers) 1,000 mls @ 125 mls/hr IV DIRECT [facility] Last Admin: 10/26/19 07:57 Dose: 125 mls/hr Documented by: Ampicillin Sodium (Ampicillin/Ns 1 Gm/50 Ml) 1 gm in 50 mls @ 100 mls/hr IV Q4HR [facility]; Protocol Last Admin: 10/26/19 11:26 Dose: 100 mls/hr Documented by: Magnesium Sulfate (Magnesium Sulfate 40gm/1000ml) 40 gm in 1,000 mls @ 50 mls/hr IV DIRECT [facility] Last Admin: 10/26/19 02:55 Dose: 2 gm/hr, 50 mls/hr Documented by: Levothyroxine Sodium (Synthroid) 75 mcg PO DAILY@0600 [facility] Magnesium Hydroxide (Milk Of Magnesia) 30 ml PO QHS PRN PRN Reason: Laxative Effect Multivitamins/Iron/Calcium ( Vitamin) 1 each PO QDAY [facility] Last Admin: 10/26/19 14:07 Dose: 1 each Documented by: Ondansetron HCl (Zofran) 4 mg IV Q6H PRN PRN Reason: Nausea And Vomiting Simethicone (Mylicon) 80 mg PO Q6H PRN PRN Reason: Gas pain Sodium Chloride (Deep Sea) 2 spray NS Q4H PRN PRN Reason: Congestion Review of Systems All systems: negative - Vital Signs Vital signs: Vital Signs Temp Pulse Resp BP 98 F 106 H 18 126/66 10/25/19 20:05 10/25/19 20:05 10/25/19 20:05 10/25/19 20:05 Temp Pulse Resp BP Pulse Ox 98.8 F 94 H 16 116/58 100 10/26/19 13:41 10/26/19 13:39 10/26/19 13:19 10/26/19 12:58 10/26/19 13:39 - Physical Exam Breasts: Positive: deferred Abdomen: Positive: soft (gravid ), hernia (ventral hernia ) Genitourinary (Female): Positive: normal external genitalia Uterus: Positive: enlarged (gravid ) Extremities: Positive: normal - Obstetrical FHR: auscultation normal Cervical Dilatation: 0 Uterine Contraction Pattern: Regular Uterine Tone Measurement Phase: Resting Uterine Contraction Intensity: Moderate Results Result Diagrams: 10/25/19 22:37 10/26/19 07:53 Abnormal lab results 10/25/19 10/26/19 10/26/19 Range/Units 22:37 07:53 07:53 RBC 3.13 L (3.65-5.03) M/mm3 Hgb 8.2 L (10.1-14.3) gm/dl Hct 25.9 L (30.3-42.9) % MCH 26 L (28-32) pg RDW 16.0 H (13.2-15.2) % Lymph % (Auto) 12.1 L (13.4-35.0) % [place] % (Auto) 9.7 H (0.0-7.3) % Lymph # 1.1 L (1.2-5.4) K/mm3 [place] # 0.9 H (0.0-0.8) K/mm3 Seg Neutrophils % 77.2 H (40.0-70.0) % Sodium 136 L (137-145) mmol/L Potassium 3.4 L (3.6-5.0) mmol/L Carbon Dioxide 17 L (22-30) mmol/L BUN 4 L (7-17) mg/dL Creatinine 0.4 L (0.7-1.2) mg/dL Calcium 7.9 L (8.4-10.2) mg/dL Magnesium 4.20 H (1.7-2.3) mg/dL Albumin 3.0 L (3.9-5) g/dL All other labs normal. Assessment and Plan A: IUP at 31w3d contractions - refuses trial of terbutaline Insufficient care H/o DVT H/o nasopharyngeal cancer Dental Carries P: Admit for observation Magnesium sulfate for tocolysis BPP Closely monitor clinical status
[2019-10-26] MEDS: ACETAMINOPHEN 325 MG TAB PO PRN (16:08)
[2019-10-27] MEDS: ACETAMINOPHEN 325 MG TAB PO PRN (00:15)
[2019-10-27] MEDS: AMPICILLIN/NS 1 GM/50 ML 1 GM/50 ML BAG IV SCH ×2 (00:56→06:30)
[2019-10-27] MEDS: LEVOTHYROXINE 75 MCG TAB PO SCH (06:30)
[2019-10-27] MEDS: BETAMET ACET/BETAMET NA PH 6 MG/ML INJ 5 ML MDV IM SCH (11:30)
[2019-10-27] MEDS: PRENATAL VIT27-FE FUMARATE-FOLIC ACID VIT TAB PO SCH (11:32)
--- NOTE | 2019-10-27 12:30 | Progress Note ---
Assessment and Plan A: IUP at 31w3d contractions, refused trial of terbutaline, s/p magnesium sulfate x 24 hours. s/p betamethasone x 1 dose Insufficient care H/o DVT H/o nasopharyngeal cancer Dental Carries P: Discontinue magnesium sulfate Observe contraction pattern off of magnesium Administer second dose of betamethasone Closely monitor clinical status Subjective - Subjective Date of service: 10/27/19 Principal diagnosis: contractions, Insufficient care, H/o DVT, H/o nasoph cance Interval history: Pt's contractions are very irregular presently. She has no new complaints. Patient reports: movement normal, contractions (rare), no new complaints, no loss of fluid, no vaginal bleeding Objective - Vital Signs Vital Signs: Vital Signs - 12hr 10/27/19 10/27/19 10/27/19 00:33 00:38 00:43 Temperature Pulse Rate 102 H 105 H 83 Respiratory Rate Blood Pressure O2 Sat by Pulse 100 100 100 Oximetry 10/27/19 10/27/19 10/27/19 00:48 00:53 00:58 Temperature Pulse Rate 104 H 105 H 101 H Respiratory Rate Blood Pressure O2 Sat by Pulse 100 100 100 Oximetry 10/27/19 10/27/19 10/27/19 01:03 01:08 01:13 Temperature Pulse Rate 104 H 114 H 105 H Respiratory Rate Blood Pressure O2 Sat by Pulse 100 100 100 Oximetry 10/27/19 10/27/19 10/27/19 01:22 01:27 01:32 Temperature Pulse Rate 117 H 116 H 107 H Respiratory Rate Blood Pressure O2 Sat by Pulse 87 100 100 Oximetry 10/27/19 10/27/19 10/27/19 01:37 01:42 01:47 Temperature Pulse Rate 107 H 101 H 99 H Respiratory Rate Blood Pressure O2 Sat by Pulse 100 100 100 Oximetry 10/27/19 10/27/19 10/27/19 01:52 01:57 02:02 Temperature Pulse Rate 108 H 99 H 104 H Respiratory Rate Blood Pressure O2 Sat by Pulse 100 99 98 Oximetry 10/27/19 10/27/19 10/27/19 02:07 02:12 02:17 Temperature Pulse Rate 99 H 104 H 103 H Respiratory Rate Blood Pressure O2 Sat by Pulse 99 98 98 Oximetry 10/27/19 10/27/19 10/27/19 02:20 02:22 02:27 Temperature Pulse Rate 108 H 102 H 100 H Respiratory Rate Blood Pressure 99/51 O2 Sat by Pulse 98 98 Oximetry 10/27/19 10/27/19 10/27/19 02:32 02:37 02:42 Temperature Pulse Rate 102 H 102 H 101 H Respiratory Rate Blood Pressure O2 Sat by Pulse 96 98 98 Oximetry 10/27/19 10/27/19 10/27/19 02:47 02:52 02:57 Temperature Pulse Rate 96 H 98 H 100 H Respiratory Rate Blood Pressure O2 Sat by Pulse 100 98 98 Oximetry 10/27/19 10/27/19 10/27/19 03:02 03:07 03:12 Temperature Pulse Rate 103 H 99 H 101 H Respiratory Rate Blood Pressure O2 Sat by Pulse 98 98 97 Oximetry 10/27/19 10/27/19 10/27/19 03:17 03:20 03:22 Temperature Pulse Rate 101 H 108 H 95 H Respiratory Rate Blood Pressure 105/59 O2 Sat by Pulse 98 97 Oximetry 10/27/19 10/27/19 10/27/19 03:27 03:32 03:37 Temperature Pulse Rate 94 H 97 H 98 H Respiratory Rate Blood Pressure O2 Sat by Pulse 97 97 97 Oximetry 10/27/19 10/27/19 10/27/19 03:42 03:47 03:52 Temperature Pulse Rate 98 H 94 H 96 H Respiratory Rate Blood Pressure O2 Sat by Pulse 97 98 98 Oximetry 10/27/19 10/27/19 10/27/19 03:57 04:00 04:02 Temperature 97.8 F Pulse Rate 96 H 94 H Respiratory 14 Rate Blood Pressure O2 Sat by Pulse 98 100 96 Oximetry 10/27/19 10/27/19 10/27/19 04:07 04:12 04:17 Temperature Pulse Rate 101 H 94 H 94 H Respiratory Rate Blood Pressure O2 Sat by Pulse 96 97 96 Oximetry 10/27/19 10/27/19 10/27/19 04:21 04:22 04:27 Temperature Pulse Rate 94 H 96 H 98 H Respiratory Rate Blood Pressure 105/55 O2 Sat by Pulse 97 94 Oximetry 10/27/19 10/27/19 10/27/19 04:32 04:37 04:42 Temperature Pulse Rate 94 H 93 H 93 H Respiratory Rate Blood Pressure O2 Sat by Pulse 96 97 98 Oximetry 10/27/19 10/27/19 10/27/19 04:47 04:50 04:52 Temperature Pulse Rate 94 H 124 H 122 H Respiratory Rate Blood Pressure O2 Sat by Pulse 98 93 100 Oximetry 10/27/19 10/27/19 10/27/19 04:57 05:02 05:07 Temperature Pulse Rate 116 H 103 H 99 H Respiratory Rate Blood Pressure O2 Sat by Pulse 97 99 99 Oximetry 10/27/19 10/27/19 10/27/19 05:12 05:17 05:22 Temperature Pulse Rate 93 H 93 H 90 Respiratory Rate Blood Pressure 102/51 O2 Sat by Pulse 99 99 99 Oximetry 10/27/19 10/27/19 10/27/19 05:27 05:32 05:37 Temperature Pulse Rate 93 H 96 H 92 H Respiratory Rate Blood Pressure O2 Sat by Pulse 99 99 99 Oximetry 10/27/19 10/27/19 10/27/19 05:42 05:43 05:47 Temperature Pulse Rate 96 H 95 H 95 H Respiratory Rate Blood Pressure 110/59 O2 Sat by Pulse 99 100 Oximetry 10/27/19 10/27/19 10/27/19 05:52 05:57 06:02 Temperature Pulse Rate 97 H 96 H 98 H Respiratory Rate Blood Pressure O2 Sat by Pulse 100 99 98 Oximetry 10/27/19 10/27/19 10/27/19 06:07 06:12 06:16 Temperature 97.9 F Pulse Rate 93 H 95 H Respiratory 14 Rate Blood Pressure O2 Sat by Pulse 100 99 99 Oximetry 10/27/19 10/27/19 10/27/19 06:17 06:20 06:22 Temperature Pulse Rate 95 H 96 H 97 H Respiratory Rate Blood Pressure 101/49 O2 Sat by Pulse 100 99 Oximetry 10/27/19 10/27/19 10/27/19 06:27 06:32 06:37 Temperature Pulse Rate 98 H 97 H 107 H Respiratory Rate Blood Pressure O2 Sat by Pulse 100 100 100 Oximetry 10/27/19 10/27/19 10/27/19 06:42 06:47 06:52 Temperature Pulse Rate 94 H 97 H 96 H Respiratory Rate Blood Pressure O2 Sat by Pulse 98 98 99 Oximetry 10/27/19 10/27/19 10/27/19 06:57 07:02 07:07 Temperature Pulse Rate 100 H 92 H 91 H Respiratory Rate Blood Pressure O2 Sat by Pulse 99 98 99 Oximetry 10/27/19 10/27/19 10/27/19 07:12 07:17 07:20 Temperature Pulse Rate 94 H 96 H 92 H Respiratory Rate Blood Pressure 98/54 O2 Sat by Pulse 98 98 Oximetry 10/27/19 10/27/19 10/27/19 07:22 07:27 07:32 Temperature Pulse Rate 94 H 96 H 97 H Respiratory Rate Blood Pressure O2 Sat by Pulse 98 98 98 Oximetry 10/27/19 10/27/19 10/27/19 07:37 07:42 07:45 Temperature 98.1 F Pulse Rate 130 H 112 H Respiratory Rate Blood Pressure O2 Sat by Pulse 99 100 Oximetry 10/27/19 10/27/19 10/27/19 07:47 07:52 07:57 Temperature Pulse Rate 115 H 109 H 110 H Respiratory Rate Blood Pressure O2 Sat by Pulse 100 100 100 Oximetry 10/27/19 10/27/19 10/27/19 08:02 08:07 08:12 Temperature Pulse Rate 110 H 110 H 104 H Respiratory Rate Blood Pressure O2 Sat by Pulse 100 100 100 Oximetry 10/27/19 10/27/19 10/27/19 08:17 08:21 08:22 Temperature Pulse Rate 105 H 100 H 112 H Respiratory Rate Blood Pressure 113/64 O2 Sat by Pulse 100 100 Oximetry 10/27/19 10/27/19 10/27/19 08:27 08:32 08:37 Temperature Pulse Rate 128 H 114 H 112 H Respiratory Rate Blood Pressure O2 Sat by Pulse 100 100 99 Oximetry 10/27/19 10/27/19 10/27/19 08:42 08:47 08:52 Temperature Pulse Rate 113 H 103 H 101 H Respiratory Rate Blood Pressure O2 Sat by Pulse 100 98 100 Oximetry 10/27/19 10/27/19 10/27/19 08:57 09:02 09:07 Temperature Pulse Rate 101 H 103 H 103 H Respiratory Rate Blood Pressure O2 Sat by Pulse 99 99 99 Oximetry 10/27/19 10/27/19 09:12 11:41 Temperature Pulse Rate 111 H 106 H Respiratory Rate Blood Pressure 97/54 O2 Sat by Pulse 100 Oximetry - Exam Breasts: deferred Abdomen: Present: soft (gravid ), hernia Uterus: Present: normal (gravid ) FHR: auscultation normal Uterine Contraction Monitor Mode: External Cervical Dilatation: 0 Uterine Contraction Pattern: Irregular Uterine Tone Measurement Phase: Resting Uterine Contraction Intensity: Mild Extremities: normal - Labs Labs: Abnormal Labs 10/25/19 10/26/19 10/26/19 22:37 07:53 07:53 RBC 3.13 L Hgb 8.2 L Hct 25.9 L MCH 26 L RDW 16.0 H Lymph % (Auto) 12.1 L [place] % (Auto) 9.7 H Lymph # 1.1 L [place] # 0.9 H Seg Neutrophils % 77.2 H Sodium 136 L Potassium 3.4 L Carbon Dioxide 17 L BUN 4 L Creatinine 0.4 L Calcium 7.9 L Magnesium 4.20 H Albumin 3.0 L 10/26/19 10/27/19 10/27/19 18:42 01:15 06:55 RBC Hgb Hct MCH RDW Lymph % (Auto) [place] % (Auto) Lymph # [place] # Seg Neutrophils % Sodium Potassium Carbon Dioxide BUN Creatinine Calcium Magnesium 5.30 H 5.70 H 5.80 H Albumin Laboratory Results - last 24 hr 10/26/19 10/27/19 10/27/19 18:42 01:15 06:55 Magnesium 5.30 H 5.70 H 5.80 H - Results US- obstetric: report reviewed
[2019-10-27] MEDS ORDERED: ENOXAPARIN 40 MG/0.4 ML INJ SUB-Q SCH (22:00)
[2019-10-28] MEDS: LEVOTHYROXINE 75 MCG TAB PO SCH (06:05)
--- NOTE | 2019-10-28 07:51 | Progress Note ---
Assessment and Plan A: IUP at 31w4d contractions, refused trial of terbutaline, s/p magnesium sulfate x 24 hours. s/p betamethasone x 2 dose Insufficient care H/o DVT H/o nasopharyngeal cancer Dental Carries P: s/p magnesium sulfate Observe contraction pattern off of magnesium MFM consult Closely monitor clinical status Subjective - Subjective Date of service: 10/28/19 Principal diagnosis: contractions, Insufficient care, H/o DVT, H/o nasoph cance Patient reports: movement normal, contractions (rare), no new complaints, no loss of fluid, no vaginal bleeding Objective - Vital Signs Vital Signs: Vital Signs - 12hr 10/27/19 10/28/19 10/28/19 23:56 00:00 04:02 Temperature 98.4 F Pulse Rate 107 H 109 H Respiratory 12 Rate Blood Pressure 107/55 97/54 O2 Sat by Pulse 100 Oximetry 10/28/19 04:15 Temperature 98.2 F Pulse Rate Respiratory 14 Rate Blood Pressure O2 Sat by Pulse 99 Oximetry - Exam Breasts: normal Cardiovascular: Regular rate, Normal S1 Lungs: Clear to auscultation, Normal air movement Abdomen: Present: normal appearance, soft, normal bowel sounds. Absent: distention, tenderness, guarding Vulva: both: normal Uterus: Present: normal, firm, fundal height below umbilicus. Absent: bogginess, tenderness FHR: category 1 Deep Tendon Reflex Grade: Normal +2 - Labs Labs: Abnormal Labs 10/25/19 10/26/19 10/26/19 22:37 07:53 07:53 RBC 3.13 L Hgb 8.2 L Hct 25.9 L MCH 26 L RDW 16.0 H Lymph % (Auto) 12.1 L [place] % (Auto) 9.7 H Lymph # 1.1 L [place] # 0.9 H Seg Neutrophils % 77.2 H Sodium 136 L Potassium 3.4 L Carbon Dioxide 17 L BUN 4 L Creatinine 0.4 L Calcium 7.9 L Magnesium 4.20 H Albumin 3.0 L 10/26/19 10/27/19 10/27/19 18:42 01:15 06:55 RBC Hgb Hct MCH RDW Lymph % (Auto) [place] % (Auto) Lymph # [place] # Seg Neutrophils % Sodium Potassium Carbon Dioxide BUN Creatinine Calcium Magnesium 5.30 H 5.70 H 5.80 H Albumin Laboratory Results - last 24 hr 10/27/19 06:55 Magnesium 5.80 H
[2019-10-28] MEDS: AMPICILLIN/NS 1 GM/50 ML 1 GM/50 ML BAG IV SCH (10:50)
[2019-10-28] MEDS: PRENATAL VIT27-FE FUMARATE-FOLIC ACID VIT TAB PO SCH (10:51)
--- NOTE | 2019-10-28 12:09 | Consultation ---
History of Present Illness Consult date: 10/28/19 Requesting physician: JAMES MARTINEZ Reason for consult: contractions History of present illness: Thank you for your recent request for a consultation for the above-named patient. As you are aware, this is a 29 year old para 3003 with at EGA= 31 weeks 4 days gestation (based on an ERNIE of 12/26/19) that was admitted to [facility] due to Admitted with regular painful contractions. Arrested labor. At the time of my consultation on 10/28/19 she was stable and had a normal blood pressure PAST OBSTETRICAL HISTORY: See notes in chart. PAST MEDICAL AND GYNECOLOGICAL HISTORY See notes in patients chart. Patient does NOT have a history of CHTN Patient has had intermittent episodes of nausea and vomiting. CURRENT ULTRASOUND 10/26/19 FHR: 141 BPM. PRABHJOT: 15.3 Cervical length: 4.6 cm BPP 8/8 AUA: 30 weeks 1 day PHYSICAL EXAMINATION & LABORATORY FINDINGS Blood pressure: Stable Abdominal Exam: Benign, gravid FHR Tracing: Category 1 SVE: CLOSED RECENT LABS: See notes in chart. Past History Past Medical History: thyroid disease (Hypothyroidism ), deep vein thrombosis (2011 or , on Coumadin for 3 months, lost to follow up ), other (Nasopharyngeal cancer in 2011 treated with chemo and radiation ) Family/Genetic History: none - Obstetrical History : 4 Medications and Allergies Allergies Allergy/AdvReac Type Severity Reaction Status Date / Time No Known Allergies Allergy Unverified 05/06/13 09:35 Home Medications Medication Instructions Recorded Confirmed Last Taken Type Levothyroxine [Synthroid] 50 mcg PO DAILY@0600 #30 tablet 01/02/18 10/27/19 Unknown Rx Metoprolol [Lopressor TAB] 12.5 mg PO 01/02/18 Unknown History HYDROcodone/APAP 5-325 [[place] 1 each PO Q6HR PRN #10 tablet 06/14/18 10/27/19 Unknown Rx 5/325] Penicillin V Potassium 500 mg PO QID #40 tablet 06/14/18 10/27/19 Unknown Rx HYDROcodone/APAP 5-325 [[place] 1 - 2 each PO Q6HR PRN #14 tablet 12/12/18 10/27/19 Unknown Rx 5/325] Ibuprofen [Motrin 800 MG tab] 800 mg PO Q8HR PRN #20 tablet 12/12/18 10/27/19 Unknown Rx Methylergonovine [Methergine] 0.2 mg PO Q8HR #6 tablet 12/12/18 10/27/19 Unknown Rx Active Meds: Active Medications Acetaminophen (Tylenol) 650 mg PO Q4H PRN PRN Reason: Pain MILD(1-3)/Fever >100.5/JAMISON Last Admin: 10/27/19 00:15 Dose: 650 mg Documented by: Butorphanol Tartrate (Stadol) 1 mg IV Q2H PRN PRN Reason: Labor Pain Last Admin: 10/26/19 05:48 Dose: 1 mg Documented by: Diphenhydramine HCl (Benadryl) 25 mg PO Q6H PRN PRN Reason: Itching Docusate Sodium (Colace) 100 mg PO Q12H PRN PRN Reason: Constipation Enoxaparin Sodium (Enoxaparin) 40 mg SUB-Q QDAY@2200 [facility] Last Admin: 10/27/19 22:00 Dose: Not Given Documented by: Lactated Ringer's (Lactated Ringers) 1,000 mls @ 125 mls/hr IV DIRECT [facility] Last Admin: 10/26/19 21:13 Dose: 75 mls/hr Documented by: Ampicillin Sodium (Ampicillin/Ns 1 Gm/50 Ml) 1 gm in 50 mls @ 100 mls/hr IV Q4HR [facility]; Protocol Last Admin: 10/28/19 10:50 Dose: 100 mls/hr Documented by: Magnesium Sulfate (Magnesium Sulfate 40gm/1000ml) 40 gm in 1,000 mls @ 50 mls/hr IV DIRECT [facility] Last Admin: 10/26/19 21:12 Dose: 2 gm/hr, 50 mls/hr Documented by: Levothyroxine Sodium (Synthroid) 75 mcg PO DAILY@0600 [facility] Last Admin: 10/28/19 06:05 Dose: 75 mcg Documented by: Magnesium Hydroxide (Milk Of Magnesia) 30 ml PO QHS PRN PRN Reason: Laxative Effect Multivitamins/Iron/Calcium ( Vitamin) 1 each PO QDAY [facility] Last Admin: 10/28/19 10:51 Dose: 1 each Documented by: Ondansetron HCl (Zofran) 4 mg IV Q6H PRN PRN Reason: Nausea And Vomiting Simethicone (Mylicon) 80 mg PO Q6H PRN PRN Reason: Gas pain Sodium Chloride (Deep Sea) 2 spray NS Q4H PRN PRN Reason: Congestion - Vital Signs Vital signs: Vital Signs Temp Pulse Resp BP 98 F 106 H 18 126/66 10/25/19 20:05 10/25/19 20:05 10/25/19 20:05 10/25/19 20:05 Temp Pulse Resp BP Pulse Ox 98.2 F 88 14 106/53 99 10/28/19 04:15 10/28/19 08:43 10/28/19 04:15 10/28/19 08:43 10/28/19 04:15 Results Result Diagrams: 10/25/19 22:37 10/26/19 07:53 All other labs normal. Assessment and Plan ASSESSMENT: IUP at 31 weeks 4 days. Admitted with regular painful contractions. Arrested labor. History of nasopharyngeal cancer status post radiation in 2011 History of DVT non-compliant with anticoagulation Insufficient care. She is status post steroids and magnesium sulfate RECOMMENDATIONS: 1. We are in agreement with continued contractions for magnesium sulfate as a tocolytic and for neuroprotection. 2. Patient should receive steroids to mature lung parameters. 3. Consider discharge home with outpatient follow-up. 4. I have discussed her issue regarding noncompliance with Lovenox for her history of a DVT. 5. Patient is NOT a candidate for indomethacin. 6. With continued contractions consider Procardia. Thank you for allowing us to participate in the care of this patient. We look forward to the opportunity to assist in her continued management. If you have any questions, I may be reached at [phone]. Sofya Fields M.D. Maternal- Medicine Specialist
[2019-10-28 12:48] VITALS: BP 101/55
--- NOTE | 2019-10-28 13:20 | Discharge Summary ---
Providers - Providers Date of Admission: 10/25/19 22:28 Date of discharge: 10/28/19 Attending physician: CHARISMA FAGAN 10/28/19 06:44 Consult to Physician [CONS] Routine Comment: Labor Consulting Provider: ROME VAZQUEZ I Physician Instructions: Reason For Exam: Pre-term Labor Primary care physician: CHARISMA FAGAN Hospitalization Reason for admission: IUP - , labor Episiotomy: none Laceration: none Hospital course: Patient admitted for preerm conraction.Patient had mag. s/p betamenthasone. seen by MFM offer procardia for reular contractions. Lovenox written 40 SQ QD Condition at discharge: Good Disposition: DC-01 TO HOME OR SELFCARE Plan - Discharge Medications Prescriptions: Enoxaparin Sodium [Lovenox] 40 mg SQ QDAY #14 syringe - Provider Discharge Summary Additional instructions: [] Smoking cessation referral if applicable(refer to patient education folder for contact #) [] Refer to [facility]'s [facility] Booklet Call your doctor immediately for: * Fever > 100.5 * Heavy vaginal bleeding ( >1 pad per hour) * Severe persistent headache * Shortness of breath * Reddened, hot, painful area to leg or breast * Drainage or odor from incision. * Keep incision clean and dry at all times and follow doctor's instructions regarding bathing/showering - Follow up plan Follow up: CHARISMA FAGAN MD [Primary Care Provider] - 7 Days
== END 2019-10-28 14:18 | disposition home or self-care (01) ==
LOC: TRG 19:43 → LD 22:28
PROVIDERS: ADMIT Obstetrics & Gynecology; ATTEND Obstetrics & Gynecology
DX: O62.9 Abnormality of forces of labor, unspecified (principal); O09.33 Supervision of pregnancy with insufficient antenatal care, third trimester; O99.283 Endocrine, nutritional and metabolic diseases complicating pregnancy, third trimester; E03.9 Hypothyroidism, unspecified; O99.613 Diseases of the digestive system complicating pregnancy, third trimester; K02.9 Dental caries, unspecified; Z86.718 Personal history of other venous thrombosis and embolism; Z85.818 Personal history of malignant neoplasm of other sites of lip, oral cavity, and pharynx; Z92.21 Personal history of antineoplastic chemotherapy; Z92.3 Personal history of irradiation; Z79.01 Long term (current) use of anticoagulants; Z79.899 Other long term (current) drug therapy
CPT/HCPCS: 36415; 76815; 76817; 76819; 80053; 81001; 82731; 83735; 85025; 86850; 86900; 86901; 96365; 96366; 96368; 96372; 96375; G0378; J0290; J0595; J0702; J1650; J3105; J3475; J7120

== ENCOUNTER 2020-01-05 22:38 | Inpatient (IN) | payer OTHER ==
[2020-01-06] MEDS ORDERED: OXYTOCIN 20 UNIT/1000ML DRIP 40,000 MILLIUNITS/2,000 ML BAG IV ONE (00:14)
[2020-01-06] MEDS ORDERED: LACTATED RINGERS 2,000 ML ONE (00:29)
[2020-01-06] MEDS ORDERED: TERBUTALINE 1 MG/1 ML INJ SUB-Q PRN (00:41)
[2020-01-06] MEDS ORDERED: LIDOCAINE (2%) 20 MG/1 ML VIAL 20 ML MDV INFILTRATI ONE (00:41)
[2020-01-06] MEDS ORDERED: ePHEDrine SULFATE 50 MG/1 ML INJ IV PRN (00:41)
[2020-01-06] MEDS ORDERED: TERBUTALINE 1 MG/1 ML INJ IVP PRN (00:41)
[2020-01-06] MEDS ORDERED: MINERAL OIL 30 ML ORAL LIQD PO PRN (00:41)
[2020-01-06] MEDS ORDERED: AMPICILLIN/NS 2 GM/100 ML 2 GM/100 ML BAG IV ONE (00:51)
[2020-01-06] MEDS ORDERED: OXYTOCIN 20 UNIT/1000ML DRIP 20 UNITS/1,000 ML BAG IV SCH (01:00)
[2020-01-06] MEDS ORDERED: OXYTOCIN DRIP 30 UNITS/500 ML BAG IV SCH (01:00)
[2020-01-06 01:17] LABS: Hemoglobin 7.4 gm/dl (10.1-14.3); Mean Corpuscular HGB Conc 31 % (30-34); Mean Corpuscular Volume 74 fl (79-97); Red Blood Count 3.22 M/mm3 (3.65-5.03); Red Cell Distribution Width 18.6 % (13.2-15.2)
[2020-01-06 01:18] LABS: Platelet Count 171 K/mm3 (140-440)
--- NOTE | 2020-01-06 01:22 | Ultrasound Report ---
US OB limited INDICATION / CLINICAL INFORMATION: PRESENTATION. COMPARISON: 10/25/2019 FINDINGS: Single, viable intrauterine in cephalic presentation. heart rate 151. IMPRESSION: 1. Cephalic presentation. Signer Name: Theo Ku MD Signed: 01/06/2020 1:18 AM Workstation Name: [id number]
[2020-01-06] MEDS: LACTATED RINGERS 1,000 ML IV SCH ×2 (01:36→10:46)
[2020-01-06] MEDS ORDERED: NALOXONE 2 MG/2 ML INJ IV PRN (02:35)
--- NOTE | 2020-01-06 02:35 | Anesthesia Consultation ---
Anesthesia Consult and Med Hx Date of service: 01/06/20 - Airway Anesthetic Teeth Evaluation: Good ROM Head & Neck: Adequate Mental/Hyoid Distance: Adequate Mallampati Class: Class II Intubation Access Assessment: Probably Good - Pulmonary Exam CTA: Yes - Cardiac Exam Cardiac Exam: RRR - Pre-Operative Health Status ASA Pre-Surgery Classification: ASA2 Proposed Anesthetic Plan: Epidural - Pulmonary Hx Asthma: No Hx Pneumonia: No - Cardiovascular System Hx Valvular Heart Disease: (DVT-PE 2010) - Central Nervous System Hx Psychiatric Problems: Yes (ANXIETY & DEPRESSION ON MEDS) - Endocrine Hx End Stage Renal Disease: No Hx Hypothyroidism: Yes (ON MEDS) - Hematic Hx Anemia: Yes (ON MEDS) - Other Systems Hx Alcohol Use: No Hx Cancer: Yes (oral/ nasal)
--- NOTE | 2020-01-06 02:37 | Progress Note ---
Labor Epidural - Labor Epidural Start Time: 02:17 Stop Time: 02:27 Performed by:: KARINA VELASQUEZ Procedure: Patient is requesting epidural for labor pain. H&P, and labs reviewed. Procedure explained, questions answered, consent obtained. Patient in sitting position with blood pressure cuff and pulse ox on and working. Timeout performed immediately before start of procedure. Sterile betadine prep/drape. 3 mL 1% lidocaine skin wheal at L[3]-L[4]. 18-gauge Touhy epidural needle advanced to [id number] with saline at [7] cm. Epidural dexmedetomidine [30] mcg administered. Epidural catheter advanced to [12] cm, negative aspiration for blood and csf, negative test dose 3 ml 1.5% lidocaine with epinephrine. Sterile steri-strips and tegaderm applied, followed by tape reinforcement. Patient tolerated procedure well.
[2020-01-06] MEDS: fentaNYL-BUPIV 2 MCG/ML-0.125% 200 MCG/100 ML BAG EPIDURAL SCH ×2 (03:20→11:06)
[2020-01-06] MEDS ORDERED: ONDANSETRON 4 MG/2 ML INJ IV PRN ×3 (03:50→11:47)
[2020-01-06] MEDS: ePHEDrine SULFATE 50 MG/1 ML INJ IV PRN ×2 (05:14→05:20)
[2020-01-06] MEDS ORDERED: AMPICILLIN/NS 1 GM/50 ML 1 GM/50 ML BAG IV SCH (06:30)
[2020-01-06] MEDS ORDERED: LEVOTHYROXINE 150 MCG TAB PO SCH (08:00)
--- NOTE | 2020-01-06 08:19 | History and Physical Report ---
History of Present Illness Date of examination: 01/06/20 Date of admission: 01/06/20 00:42 Chief complaint: contractions History of present illness: 29y/o @ 40+4 weeks presents in active labor. The patient has not had care during this . Medical history of significant for DVT and pulmonary embolism. The patient was not anticoagulated during the . She has a history of nasopharyngeal cancer and hypothyroidism. Her GBS status is unknown. Past History Past Medical History: thyroid disease, deep vein thrombosis, other (nasopharyngeal cancer; pulmonary embolism) Social history: single - Obstetrical History Expected Date of Delivery: 01/02/20 Actual Gestation: 40 Week(s) 4 Day(s) : 4 Para: 3 Hx # Term Pregnancies: 3 Number of Pregnancies: 0 Spontaneous Abortions: 0 Induced : 0 Number of Living Children: 3 Medications and Allergies Allergies Allergy/AdvReac Type Severity Reaction Status Date / Time No Known Allergies Allergy Unverified 05/06/13 09:35 Home Medications Medication Instructions Recorded Confirmed Last Taken Type Levothyroxine [Synthroid] 50 mcg PO DAILY@0600 #30 tablet 01/02/18 01/06/20 01/05/20 07:30 Rx Ferrous Sulfate 1 tab PO TID 01/06/20 01/06/20 01/05/20 07:30 History Active Meds: Active Medications Ephedrine Sulfate (Ephedrine Sulfate) 10 mg IV Q2M PRN PRN Reason: Hypotension Last Admin: 01/06/20 05:20 Dose: 10 mg Documented by: Oxytocin/Sodium Chloride (Pitocin/Ns 20 Unit/1000ml Drip) 20 units in 1,000 mls @ 125 mls/hr IV DIRECT EILEEN Oxytocin/Sodium Chloride (Pitocin/Ns 30 Unit/500ml) 30 units in 500 mls @ 1 mls/hr IV TITR EILEEN; Protocol Lactated Ringer's (Lactated Ringers) 1,000 mls @ 125 mls/hr IV DIRECT EILEEN Last Admin: 01/06/20 01:36 Dose: 125 mls/hr Documented by: Fentanyl/Bupivacaine/Sodium Chlor (Fentanyl-Bupiv 2 Mcg/Ml-0.125%) 200 mcg in 100 mls @ 12 mls/hr EPIDURAL TITR EILEEN; Protocol Last Admin: 01/06/20 03:20 Dose: 12 mls/hr Documented by: Ampicillin Sodium (Ampicillin/Ns 1 Gm/50 Ml) 1 gm in 50 mls @ 100 mls/hr IV Q4HR [facility]; Protocol Last Admin: 01/06/20 06:32 Dose: 100 mls/hr Documented by: Levothyroxine Sodium (Synthroid) 75 mcg PO DAILY@0600 EILEEN Mineral Oil (Mineral Oil) 30 ml PO QHS PRN PRN Reason: Constipation Naloxone HCl (Naloxone) 0.2 mg IV Q5M PRN PRN Reason: Respiratory sedation Ondansetron HCl (Zofran) 4 mg IV Q4H PRN PRN Reason: Nausea And Vomiting Last Admin: 01/06/20 08:00 Dose: 4 mg Documented by: Terbutaline Sulfate (Brethine) 0.25 mg SUB-Q ONCE PRN PRN Reason: Hyperstimulation/Hypertonicity Terbutaline Sulfate (Brethine) 0.25 mg IVP ONCE PRN PRN Reason: Hyperstimulation/Hypertonicity Review of Systems All systems: negative Genitourinary: contractions - Vital Signs Vital signs: Vital Signs Pulse Pulse Ox 107 H 100 01/05/20 23:03 01/05/20 23:03 Temp Pulse Resp BP Pulse Ox 98 F 88 20 120/71 100 01/06/20 07:03 01/06/20 08:10 01/06/20 07:03 01/06/20 08:01 01/06/20 08:10 - Physical Exam Breasts: Positive: deferred Cardiovascular: Regular rate Lungs: Positive: Clear to auscultation Abdomen: Positive: normal appearance Results Result Diagrams: 01/06/20 00:29 Abnormal lab results 01/06/20 Range/Units 00:29 RBC 3.22 L (3.65-5.03) M/mm3 Hgb 7.4 L (10.1-14.3) gm/dl Hct 24.0 L (30.3-42.9) % MCV 74 L (79-97) fl MCH 23 L (28-32) pg RDW 18.6 H (13.2-15.2) % All other labs normal. Assessment and Plan - Patient Problems (1) Active labor at term Current Visit: Yes Status: Acute Plan to address problem: admit to L&D (2) Insufficient care Current Visit: Yes Status: Acute
[2020-01-06] MEDS ORDERED: LIDOCAINE 1.5% /EPINEPHRINE 1:200,000 AMP (5 ML) INFILTRATI ONE (10:18)
[2020-01-06] MEDS ORDERED: fentaNYL 100 MCG/2 ML INJ ONE (10:18)
[2020-01-06] MEDS ORDERED: WITCH HAZEL/ GLYCERIN PAD TP PRN (11:47)
[2020-01-06] MEDS ORDERED: diphenhydrAMINE 25 MG CAP PO PRN (11:47)
[2020-01-06] MEDS ORDERED: PROMETHAZINE 25 MG RECT SUPP PR PRN (11:47)
[2020-01-06] MEDS ORDERED: MAGNESIUM HYDROXIDE (MOM) ORAL LIQD UDC PO PRN (11:47)
[2020-01-06] MEDS ORDERED: PROMETHAZINE 25 MG TAB PO PRN (11:47)
[2020-01-06] MEDS ORDERED: LANOLIN/ZINC/DIMETHICONE (LANSINOH) 7 GM TP PRN (11:47)
[2020-01-06] MEDS ORDERED: ACETAMINOPHEN 325 MG TAB PO PRN (11:47)
--- NOTE | 2020-01-06 11:47 | Procedure Note ---
OB Delivery Note - Delivery Date of Delivery: 01/06/20 Surgeon: IRINA SALAS Estimated blood loss: 200cc - Vaginal Delivery presentation: vertex Delivery position: OP Intrapartum events: mult.variable deceleratio Delivery augmentation: pitocin Delivery monitor: external FHT, external uterine Route of delivery: Delivery placenta: spontaneous Episiotomy: none Delivery laceration: 2nd degree Delivery repair: vicryl Anesthesia: epidural Delivery comments: Patient had a prolonged transition from 0 station to +1 station. The patient began pushing developed variable decelerations. She eventually pushed to deliver a live-born male infant with Apgars of 7 and 9 weight 8 pounds 3 ounces. The infant delivered and straits occiput posterior position. After delivery of the head the shoulders delivered without difficulty. The was bulb suction and stimulated. The cord was clamped and cut x2 and the was passed to the warmer. The placenta delivered spontaneously intact with a three- vessel cord. The patient sustained a midline second-degree laceration that was repaired with 2-0 Vicryl in normal fashion. Estimated blood loss of 200 mL. - A at 1 minute: 7 at 5 minutes: 9 Infant Gender: Male (Weight 8 pounds 3 ounces)
[2020-01-06] MEDS ORDERED: MAGNESIUM SULFATE 4 GM/100 ML BAG IV ONE (14:07)
[2020-01-06] MEDS ORDERED: MAGNESIUM SULFATE 40GM/1000ML 40 GM/1,000 ML BAG IV SCH (15:00)
[2020-01-06] MEDS: HYDROcodone/ACETAMINOPHEN 5-325 MG TAB PO PRN (15:43)
[2020-01-06] MEDS: IBUPROFEN 600 MG TAB PO SCH ×2 (18:27→23:30)
--- NOTE | 2020-01-06 19:11 | Post Anesthesia Evaluation ---
- Post Anesthesia Evaluation Patient Participated: Yes Airway Patent: Yes Stable Respiratory Function: Yes Nausea/Vomiting: No Temp > 96.8F: Yes Pain Manageable: Yes Adequeate Hydration: Yes Anesthesia Complications: No Block Receding Appropriately: Yes Patient on Ventilator: No
[2020-01-07 00:52] LABS: Hematocrit 21.9 % (30.3-42.9); Hemoglobin 6.7 gm/dl (10.1-14.3)
[2020-01-07] MEDS: HYDROcodone/ACETAMINOPHEN 5-325 MG TAB PO PRN ×2 (01:04→21:48)
[2020-01-07] MEDS: IBUPROFEN 600 MG TAB PO SCH ×3 (05:07→17:23)
--- NOTE | 2020-01-07 07:52 | Progress Note ---
Assessment and Plan A: PPD#1 s/p at term Acute on chronic anemia, currently asymptomatic H/o DVT/PE non-compliant with anticoagulation during , to begin Lovenox today H/o nasopharyngeal cancer treated with chemotherapy and radiation No care P: Monitor bleeding Pt will likely need Hematology following Closely monitor clinical status Subjective - Subjective Date of service: 01/07/20 Principal diagnosis: s/p at term, H/o DVT/PE, H/o nasopharyngeal cancer, no pnc Interval history: Pt without complaints overnight. Patient reports: appetite normal, voiding normally, pain well controlled, ambulating normally : doing well Objective - Vital Signs Latest vital signs: Vital Signs Temp Pulse Resp BP BP Pulse Ox 01/07/20 02:06 98.6 F 94 H 16 118/66 100 01/06/20 22:10 98.3 F 89 18 107/62 100 01/06/20 15:59 99.4 F 100 H 20 120/70 97 01/06/20 13:10 100.0 F H 107 H 20 110/64 01/06/20 12:40 104 H 100 01/06/20 12:35 111 H 100 01/06/20 12:30 105 H 118/57 99 01/06/20 12:25 106 H 100 01/06/20 12:20 99 H 99 01/06/20 12:18 105 H 94 01/06/20 12:15 126 H 97 01/06/20 12:10 126 H 100 01/06/20 12:05 113 H 98 01/06/20 12:00 43 L 01/06/20 11:55 118 H 100 01/06/20 11:50 127 H 100 01/06/20 11:45 110 H 98 01/06/20 11:40 104 H 100 01/06/20 11:35 94 H 100 01/06/20 11:30 123 H 100 01/06/20 11:25 122 H 100 01/06/20 11:20 107 H 100 01/06/20 11:15 111 H 100 01/06/20 11:10 124 H 100 01/06/20 11:08 99.6 F 01/06/20 11:05 95 H 100 01/06/20 11:03 115 H 106/68 01/06/20 11:00 133 H 100 01/06/20 10:55 130 H 100 06/22/20 10:50 119 H 100 01/06/20 10:45 162 H 100 01/06/20 10:40 105 H 100 01/06/20 10:35 107 H 100 01/06/20 10:33 100 H 118/69 01/06/20 10:30 107 H 100 01/06/20 10:25 118 H 98 01/06/20 10:20 116 H 100 01/06/20 10:19 113 H 70 L 01/06/20 10:15 105 H 100 01/06/20 10:10 103 H 100 01/06/20 10:05 111 H 100 01/06/20 10:00 90 100 01/06/20 09:55 119 H 100 01/06/20 09:50 133 H 100 01/06/20 09:48 106 H 92 01/06/20 09:45 103 H 100 01/06/20 09:40 106 H 100 01/06/20 09:39 87 79 L 01/06/20 09:35 105 H 100 01/06/20 09:30 88 100 01/06/20 09:29 80 83 L 01/06/20 09:25 91 H 100 01/06/20 09:20 100 H 100 01/06/20 09:17 100 H 124/78 01/06/20 09:15 103 H 100 01/06/20 09:10 98 H 100 01/06/20 09:05 102 H 100 01/06/20 09:03 88 121/74 01/06/20 09:00 92 H 100 01/06/20 08:55 90 100 01/06/20 08:50 83 100 01/06/20 08:46 89 116/61 01/06/20 08:45 81 100 01/06/20 08:40 110 H 100 01/06/20 08:35 104 H 100 01/06/20 08:32 110 H 115/59 01/06/20 08:30 98 H 100 01/06/20 08:25 101 H 99 01/06/20 08:20 88 100 01/06/20 08:18 91 H 92 01/06/20 08:16 93 H 119/71 01/06/20 08:15 89 100 01/06/20 08:10 88 100 06/22/20 08:05 96 H 100 01/06/20 08:01 95 H 120/71 01/06/20 08:00 96 H 100 01/06/20 07:55 92 H 100 01/06/20 07:50 82 100 Intake and Output 01/06/20 01/07/20 01/07/20 22:59 06:59 14:59 Intake Total 480 Output Total 800 Balance -320 Intake: Oral 240 Intake, Free Water 240 Output: Urine 800 Void 800 Other: Total, Intake Amount 240 Total, Output Amount 400 - Exam Abdomen: Present: soft Uterus: Present: fundal height above umbilicus Extremities: Present: edema (trace) - Labs Labs: Abnormal lab results 01/07/20 Range/Units 00:35 Hgb 6.7 L (10.1-14.3) gm/dl Hct 21.9 L (30.3-42.9) %
[2020-01-07] MEDS: ENOXAPARIN 40 MG/0.4 ML INJ SUB-Q SCH (10:20)
[2020-01-08] MEDS: IBUPROFEN 600 MG TAB PO SCH ×3 (06:28→11:35)
--- NOTE | 2020-01-08 08:10 | Progress Note ---
Assessment and Plan A: PPD2 s/p h/o DVT/PE Acute on chronic anemia due to and blood loss, hemodynamically stable Vital signs stable P: Ferrous sulfate supplementation Lovenox 40mg subq qday, reviewed instructions on use at home Reviewed strict precautions Discharge to home today Subjective - Subjective Date of service: 01/08/20 Principal diagnosis: s/p at term, H/o DVT/PE, H/o nasopharyngeal cancer, no pnc Interval history: PPD2 s/p , initiated Lovenox yesterday. Patient reports: appetite normal, voiding normally, pain well controlled, ambulating normally, other (denies dizziness, ringing in ears), no dizzy ambulation Catherine: doing well, bottle feeding Objective - Vital Signs Latest vital signs: Vital Signs Temp Pulse Resp BP BP Pulse Ox 01/08/20 06:28 18 01/08/20 00:14 98.2 F 98 H 20 107/56 100 01/07/20 21:48 18 01/07/20 17:23 18 01/07/20 16:28 98.4 F 79 18 114/66 99 01/07/20 11:58 18 01/07/20 08:20 97.7 F 90 18 93/56 99 Intake and Output 01/07/20 01/08/20 01/08/20 23:59 07:59 15:59 Intake Total 240 240 Balance 240 240 Intake: Oral 240 240 Other: Total, Intake Amount 240 240 # Voids Void 1 - Exam Lungs: Present: Normal air movement Abdomen: Present: soft. Absent: distention Uterus: Present: firm, fundal height at umbilicus. Absent: bogginess Extremities: Present: normal
--- NOTE | 2020-01-08 08:13 | Discharge Summary ---
Providers - Providers Date of Admission: 01/06/20 00:42 Date of discharge: 01/08/20 Attending physician: CHARISMA FAGAN Primary care physician: CHARISMA FAGAN Hospitalization Reason for admission: active labor, IUP at term Delivery: Laceration: 2nd degree Other procedures: none complications: none Discharge diagnosis: IUP at term delivered Hospital course: Pt arrived in active labor with no care. She had a . course notable for anemia with hemodynamic stability. She has a history of DVT/PE and will self-administer Lovenox at home. Condition at discharge: Good Disposition: DC-01 TO HOME OR SELFCARE Plan - Discharge Medications Prescriptions: Ferrous Sulfate [Feosol 325 MG tab] 325 mg PO BID #60 tablet Enoxaparin Sodium [Lovenox] 40 mg SQ QDAY 42 Days #42 syringe Ibuprofen [Motrin] 600 mg PO Q6H PRN #60 tablet PRN Reason: Pain - Provider Discharge Summary Activity: routine, no sex for 6 weeks, no heavy lifting 4 weeks, no strenuous exercise Diet: routine Instructions: routine Additional instructions: [] Smoking cessation referral if applicable(refer to patient education folder for contact #) [] Refer to [facility]'s [facility] Booklet Call your doctor immediately for: * Fever > 100.5 * Heavy vaginal bleeding ( >1 pad per hour) * Severe persistent headache * Shortness of breath * Reddened, hot, painful area to leg or breast * Drainage or odor from incision. * Keep incision clean and dry at all times and follow doctor's instructions regarding bathing/showering - Follow up plan Follow up: CHARISMA FAGAN MD [Primary Care Provider] - 14 Days (Please call [facility] to schedule an appointment.)
[2020-01-08] MEDS: ENOXAPARIN 40 MG/0.4 ML INJ SUB-Q SCH (09:11)
[2020-01-08 12:32] VITALS: BP 117/74
== END 2020-01-08 13:15 | disposition home or self-care (01) | DRG 775 ==
LOC: TRG 22:38 → APU 22:39 → TRG 01-06 00:42 → APU 01-06 00:42 → LD 01-06 02:59 → OB 01-06 13:14
PROVIDERS: ADMIT Obstetrics & Gynecology; ATTEND Obstetrics & Gynecology
PROC: 10E0XZZ Delivery of Products of Conception, External Approach (ICD-10-PCS; principal; 2020-01-06)
PROC: 0KQM0ZZ Repair Perineum Muscle, Open Approach (ICD-10-PCS; 2020-01-06)
PROC: 3E0R3BZ Introduction of Anesthetic Agent into Spinal Canal, Percutaneous Approach (ICD-10-PCS; 2020-01-06)
PROC: 00HU33Z Insertion of Infusion Device into Spinal Canal, Percutaneous Approach (ICD-10-PCS; 2020-01-06)
DX: O99.284 Endocrine, nutritional and metabolic diseases complicating childbirth (principal); O70.1 Second degree perineal laceration during delivery; Z37.0 Single live birth; Z3A.40 40 weeks gestation of pregnancy; Z86.718 Personal history of other venous thrombosis and embolism; Z85.819 Personal history of malignant neoplasm of unspecified site of lip, oral cavity, and pharynx; D62 Acute posthemorrhagic anemia; O76 Abnormality in fetal heart rate and rhythm complicating labor and delivery; O99.03 Anemia complicating the puerperium; E03.9 Hypothyroidism, unspecified
CPT/HCPCS: 36415; 76815; 85014; 85018; 85027; 86592; 86850; 86900; 86901; G0378; J0290; J1650; J2405; J2590; J3010; J7120